=== PATIENT | male | born 1940 | race Caucasian/White ===

== ENCOUNTER 2023-02-20 12:35 | Inpatient (IN) ==
[2023-02-20] MEDS ORDERED: SODIUM CHLORIDE 0.9% 500 ML IV STA (13:31)
[2023-02-20] MEDS ORDERED: ONDANSETRON INJ 2 MG/ML 2 ML VIAL IV STA (13:31)
[2023-02-20 14:16] LABS: Basophils # (auto) 0.03 K/uL (0-0.2); Basophils % (auto) 0.2 %; Eosinophils # (auto) 0.03 K/uL (0-0.50); Eosinophils % (auto) 0.2 %; Hematocrit (blood only) 44.3 % (42.0-52.0); Immature Granulocytes # (auto) 0.11 K/uL (0.01-0.20); Immature Granulocytes % (auto) 0.6 %; Lymphocytes # (auto) 2.23 K/uL (1.2-3.4); Lymphocytes % (auto) 12.6 %; Mean Corpuscular Hemoglobin 29.4 pg (25.0-34.0); Mean Corpuscular Hgb Conc 33.9 g/dL (32.0-36.0); Mean Corpuscular Volume 86.9 fL (80.0-100.0); Mean Platelet Volume 10.8 fL (9.4-12.4); Monocytes # (auto) 0.89 K/uL (0.11-0.59); Neutrophils # (auto) 14.42 K/uL (1.40-6.50); Neutrophils % (auto) 81.4 %; Platelet Count 315 K/uL (130-400); RDW Coefficient of Variation 14.3 % (11.5-14.5); RDW Standard Deviation 45.1 fL (36.4-46.3); White Blood Count 17.71 K/ul (4.8-10.8)
[2023-02-20 14:21] LABS: Alanine Aminotransferase 227 U/L (7-52); Albumin Globulin Ratio 1.5 (0.9-2); Albumin Level 4.4 gm/dl (3.4-5.0); Alkaline Phosphatase 96 U/L (34-104); Anion Gap 7 (3-11); Aspartate Aminotransferase 85 U/L (13-39); BUN Creatinine Ratio 21.8 (10-20); Bilirubin,Total 0.5 mg/dl (0.2-1.0); Blood Urea Nitrogen 17 mg/dl (6-23); Calcium 9.4 mg/dl (8.6-10.3); Carbon Dioxide 31 mmol/L (21-32); Chloride 99 mmol/L (98-107); Est GFR (African American) 98.8 ml/min; Est GFR (Non-African American) 85.3 ml/min; Glucose 171 mg/dl (70-99(Fasting)); Potassium 4.3 mmol/L (3.5-5.1); Sodium 137 mmol/L (136-145); Total Protein 7.4 gm/dl (6.0-8.3)
[2023-02-20] MEDS ORDERED: SODIUM CHLORIDE 0.9% 1000ML 500 ML IV ONE (15:20)
--- NOTE | 2023-02-20 15:36 | Emergency Department Note ---
Impression & Plan Dizziness, Nausea, Hx of brain surgery, Leukocytosis, Elevated liver enzymes ED Provider Note NAME: AVANI LAGUNA AGE: 82 SEX: M : 1940 ARRIVES VIA: Walk-In INFORMANT: [Patient][family] ED PROVIDER(S): [Rashid Desai MD] CHIEF COMPLAINT: Vertigo HISTORY OF PRESENT ILLNESS: The patient is an 82-year-old male who has had around 6 months of what he thinks is vertigo spells. He did see Nicola Wichita Fifi 6 months ago, he saw his family doctor's office as well. He is now on meclizine. Patient states that the episodes typically last 1 to 2 hours. He has tried meclizine, sometimes it works. He states that he feels nausea, dizzy and develops dry heaves. He feels like his head is a bobble head. No arm or leg weakness. No chest pain or shortness of breath. There has been no fever. He does feel better with his eyes closed. The patient states that he is here today because this episode has been ongoing for 4-1/2 hours. The patient has a history of brain surgery secondary to intracranial bleeding. He denies cough or congestion or respiratory complaints, no urinary complaints. Of note, the patient did recently finish some oral steroids. He was on the steroids for his hip. PMHx/PSHx: See Below SOCIAL HISTORY: See Below. PHYSICAL EXAM: GENERAL: Patient is in no acute distress. HEENT: No acute trauma, normocephalic atraumatic, mucous membranes moist, no nasal congestion. The patient does have some subtle horizontal nystagmus, primarily noted when he looks up. NECK: No stridor, no adenopathy, no meningismus, trachea is midline. LUNGS: Clear to auscultation bilaterally, no wheeze, no rhonchi, breath sounds equal. HEART: Without murmurs gallops or rubs, regular rate and rhythm. ABDOMEN: Soft, nontender, bowel sounds positive, no peritonitis. EXTREMITIES: No cyanosis or edema, full range of motion of all the joints without pain or difficulty, no signs for acute trauma. NEUROLOGIC: Oriented x 3, no acute motor or sensory deficits, no focal weakness. No facial droop or speech slur, no extremity drift or cerebellar dysfunction. SKIN: No rash, no jaundice, no diaphoresis. DIFFERENTIAL DIAGNOSIS: Stroke, vertigo, intracranial bleeding, intracranial mass, UTI, electrolyte imbalance, anemia, dysrhythmia, among others. EMERGENCY DEPARTMENT COURSE/PROCEDURES: Prior/Outside records reviewed: Latest [facility] practice note. ECG per my interpretation: Indication was dizziness and weakness. The ECG shows a normal sinus rhythm with a rate of 78. There is a right bundle branch block. There are T wave inversions noted anteriorly. There is no ST elevation, no PVCs. QTc is 474. Continuous Cardiac Monitoring per my interpretation: An order was placed for continuous cardiac monitoring. The monitor shows a rate of 65 with normal sinus rhythm. MEDICAL DECISION MAKING: There is a moderate leukocytosis, this could be consistent with infection or his recent steroid use. There is a normal hemoglobin and platelet count. No renal failure. No concerning electrolyte abnormality. AST and ALT were both elevated, the bilirubin was normal. ECG shows a normal sinus rhythm, no ischemia. Cardiac enzyme testing x1 is not consistent with acute cardiac injury. Urinalysis does not show infection. Anaplasmosis and babesiosis smears were negative. Lyme disease testing was negative. COVID test was negative. Brain CT showed chronic change, no acute bleed or mass effect. Brain MRI is pending. On exam, the patient did not have any focal extremity findings. He did though have some horizontal nystagmus seen primarily when looking up. The patient was given IV Ativan 0.5 mg. He was given a liter of saline for hydration. He was given IV Zofran and oral meclizine. The patient's symptoms are persisting. He may feel slightly improved compared to when he first arrived. Given his brain surgery history, given his ongoing symptoms, I do think further work-up and neurologic evaluation is warranted. An MRI is warranted. I spoke with the patient and case management, the on-call hospitalist was consulted. DISPOSITION: Patient's presentation and findings warrant a hospital stay. Past Med/Surg History Medical History Vertigo Social History Smoking Status: Never smoker Preferred Language: [place] Feels Safe at Home: Yes Allergies Allergies Allergy/AdvReac Type Severity Reaction Status Date / Time niacin AdvReac Mild ITCHINESS, Verified 02/20/23 16:10 FAINTING Home Meds Home Medications Medication Instructions Recorded Confirmed amlodipine 10 mg tablet 10 mg PO QAM 02/20/23 02/20/23 cyclosporine 0.05 % eye drops in a 1 drp OPB BID 02/20/23 02/20/23 dropperette duloxetine 60 mg capsule,delayed 60 mg PO DAILY 02/20/23 02/20/23 release ezetimibe 10 mg tablet 10 mg PO QAM 02/20/23 02/20/23 folic acid 1 mg tablet 1 mg PO QAM 02/20/23 02/20/23 losartan 25 mg tablet 25 mg PO QAM 02/20/23 02/20/23 losartan 50 mg tablet 50 mg PO QAM 02/20/23 02/20/23 meclizine 12.5 mg tablet 12.5 mg PO TID PRN Dizziness 02/20/23 02/20/23 metformin 500 mg tablet,extended 1,000 mg PO BID 02/20/23 02/20/23 release 24 hr ondansetron HCl 8 mg tablet 8 mg PO Q8H PRN NAUSEA/VOMITING 02/20/23 02/20/23 rosuvastatin 40 mg tablet 40 mg PO DAILY 02/20/23 02/20/23 sennosides 8.6 mg-docusate sodium 2 tab PO HS 02/20/23 02/20/23 50 mg tablet (Stool Softener-Stimulant Laxative) Results & Data (ED) Vital Signs Vital Signs - 24 hr 02/20/23 12:59 02/20/23 14:45 02/20/23 16:58 Temperature 36.6 C Temperature Source Temporal Artery Scan Pulse Rate 76 Pulse Rate [Apical] 65 Respiratory Rate 18 18 Respiratory Effort / Characteristics Non-Labored Respiratory Depth Normal Blood Pressure 143/69 H Blood Pressure [Left Arm] 143/64 H 130/68 Blood Pressure Mean 93 Blood Pressure Mean [Left Arm] 90 88 Pulse Oximetry 96 93 Oxygen Delivery Method Room Air Sepsis Recent Fever Within 48 Hours No Sepsis New/Unexplained Change in Mental Status No Sepsis Action Taken by Nursing No Action Required 02/20/23 19:19 Temperature Temperature Source Pulse Rate Pulse Rate [Apical] Respiratory Rate Respiratory Effort / Characteristics Respiratory Depth Blood Pressure Blood Pressure [Left Arm] 151/72 H Blood Pressure Mean Blood Pressure Mean [Left Arm] 98 Pulse Oximetry Oxygen Delivery Method Sepsis Recent Fever Within 48 Hours Sepsis New/Unexplained Change in Mental Status Sepsis Action Taken by Prison Medications Current Medication List: was personally reviewed by me Laboratory Data Attestation: I reviewed the patient's lab results. 02/20/23 13:47 02/20/23 13:47 Lab Results 02/20/23 02/20/23 02/20/23 Range/Units 13:47 13:47 13:47 WBC 17.71 H (4.8-10.8) K/ul RBC 5.10 (4.70-6.10) M/uL Hgb 15.0 (14.0-18.0) g/dl Hct 44.3 (42.0-52.0) % MCV 86.9 (80.0-100.0) fL MCH 29.4 (25.0-34.0) pg MCHC 33.9 (32.0-36.0) g/dL RDW Std Deviation 45.1 (36.4-46.3) fL RDW Coeff of Goran 14.3 (11.5-14.5) % Plt Count 315 (130-400) K/uL MPV 10.8 (9.4-12.4) fL Immature Gran % (Auto) 0.6 % Neut % (Auto) 81.4 % Lymph % (Auto) 12.6 % Hinds % (Auto) 5.0 % Eos % (Auto) 0.2 % Baso % (Auto) 0.2 % Neut # (Auto) 14.42 H (1.40-6.50) K/uL Lymph # (Auto) 2.23 (1.2-3.4) K/uL Hinds # (Auto) 0.89 H (0.11-0.59) K/uL Eos # (Auto) 0.03 (0-0.50) K/uL Baso # (Auto) 0.03 (0-0.2) K/uL Immature Gran # (Auto) 0.11 (0.01-0.20) K/uL Sodium 137 (136-145) mmol/L Potassium 4.3 (3.5-5.1) mmol/L Chloride 99 (98-107) mmol/L Carbon Dioxide 31 (21-32) mmol/L Anion Gap 7 (3-11) BUN 17 (6-23) mg/dl Creatinine 0.78 (0.6-1.4) mg/dl Est Cr Clr Drug Dosing Not Reportable Est GFR ( Amer) 98.8 ml/min Est GFR (Non-Af Amer) 85.3 ml/min BUN/Creatinine Ratio 21.8 H (10-20) Glucose 171 H (70-99(Fasting)) mg/dl Calcium 9.4 (8.6-10.3) mg/dl Magnesium 2.0 (1.7-2.4) mg/dl Total Bilirubin 0.5 (0.2-1.0) mg/dl AST 85 H (13-39) U/L ALT 227 H (7-52) U/L Alkaline Phosphatase 96 (34-104) U/L Troponin I High Sens 18.5 (0-20) pg/ml Total Protein 7.4 (6.0-8.3) gm/dl Albumin 4.4 (3.4-5.0) gm/dl Globulin 3.0 (2.5-4.0) gm/dl Albumin/Globulin Ratio 1.5 (0.9-2) Urine Color Urine Appearance (Clear) Urine pH (4.5-7.5) Ur Specific [place] (1.000-1.030) Urine Protein (Negative) Urine Glucose (UA) (Negative) Urine Ketones (Negative) Urine Blood (Negative) Urine Nitrite (Negative) Urine Bilirubin (Negative) Urine Urobilinogen (Negative) Ur Leukocyte Esterase (Negative) Anaplasma Smear See Comment Babesia Smear See Comment Lyme Disease IgG Ab (Negative) Lyme Disease IgM Ab (Negative) SARS-CoV-2, RNA, NAAT (NEGATIVE) 02/20/23 02/20/23 02/20/23 Range/Units 16:52 18:40 20:07 WBC (4.8-10.8) K/ul RBC (4.70-6.10) M/uL Hgb (14.0-18.0) g/dl Hct (42.0-52.0) % MCV (80.0-100.0) fL MCH (25.0-34.0) pg MCHC (32.0-36.0) g/dL RDW Std Deviation (36.4-46.3) fL RDW Coeff of Goran (11.5-14.5) % Plt Count (130-400) K/uL MPV (9.4-12.4) fL Immature Gran % (Auto) % Neut % (Auto) % Lymph % (Auto) % Hinds % (Auto) % Eos % (Auto) % Baso % (Auto) % Neut # (Auto) (1.40-6.50) K/uL Lymph # (Auto) (1.2-3.4) K/uL Hinds # (Auto) (0.11-0.59) K/uL Eos # (Auto) (0-0.50) K/uL Baso # (Auto) (0-0.2) K/uL Immature Gran # (Auto) (0.01-0.20) K/uL Sodium (136-145) mmol/L Potassium (3.5-5.1) mmol/L Chloride (98-107) mmol/L Carbon Dioxide (21-32) mmol/L Anion Gap (3-11) BUN (6-23) mg/dl Creatinine (0.6-1.4) mg/dl Est Cr Clr Drug Dosing Est GFR ( Amer) ml/min Est GFR (Non-Af Amer) ml/min BUN/Creatinine Ratio (10-20) Glucose (70-99(Fasting)) mg/dl Calcium (8.6-10.3) mg/dl Magnesium (1.7-2.4) mg/dl Total Bilirubin (0.2-1.0) mg/dl AST (13-39) U/L ALT (7-52) U/L Alkaline Phosphatase (34-104) U/L Troponin I High Sens (0-20) pg/ml Total Protein (6.0-8.3) gm/dl Albumin (3.4-5.0) gm/dl Globulin (2.5-4.0) gm/dl Albumin/Globulin Ratio (0.9-2) Urine Color Yellow Urine Appearance Clear (Clear) Urine pH 7.5 (4.5-7.5) Ur Specific [place] 1.007 (1.000-1.030) Urine Protein Negative (Negative) Urine Glucose (UA) Negative (Negative) Urine Ketones Negative (Negative) Urine Blood Negative (Negative) Urine Nitrite Negative (Negative) Urine Bilirubin Negative (Negative) Urine Urobilinogen Negative (Negative) Ur Leukocyte Esterase Negative (Negative) Anaplasma Smear Babesia Smear Lyme Disease IgG Ab Negative (Negative) Lyme Disease IgM Ab Negative (Negative) SARS-CoV-2, RNA, NAAT NEGATIVE (NEGATIVE) Administered Medications Discontinued Medications Gadobutrol (Gadobutrol 65ml Vial) 9 ml IV ONCE ONE Stop: 02/20/23 21:15 Last Admin: 02/20/23 21:15 Dose: 9 ml Documented By: MICHAEL Sodium Chloride (Nss) 500 mls @ 999 mls/hr IV .Q31M STA Stop: 02/20/23 14:01 Last Infusion: 02/20/23 14:46 Dose: 0 mls/hr Documented By: Admin: 02/20/23 13:53 Dose: 999 mls/hr Documented By: DEMOND Sodium Chloride (Nss 1000ml) 500 mls @ 999 mls/hr IV .Q31M ONE Stop: 02/20/23 15:50 Last Infusion: 02/20/23 16:22 Dose: 0 mls/hr Documented By: Admin: 02/20/23 15:36 Dose: 999 mls/hr Documented By: SOPHIA Lorazepam (Lorazepam 2 Mg/1 Ml Vial) 0.5 mg IV NOW STA Stop: 02/20/23 15:21 Last Admin: 02/20/23 16:11 Dose: 0.5 mg Documented By: SOPHIA Meclizine HCl (Meclizine Hcl 25 Mg Tab) 25 mg PO NOW STA Stop: 02/20/23 17:21 Last Admin: 02/20/23 17:28 Dose: 25 mg Documented By: SOPHIA Ondansetron HCl (Ondansetron Inj 2 Mg/Ml 2 Ml Vial) 4 mg IV NOW STA Stop: 02/20/23 13:32 Last Admin: 02/20/23 13:53 Dose: 4 mg Documented By: DEMOND Imaging Data Radiologist's Impression: Head CT 02/20/23 15:20 CT SCAN OF THE BRAIN WITHOUT IV CONTRAST CLINICAL HISTORY: Generalized weakness. Vertigo. COMPARISON STUDY: No priors. TECHNIQUE: Unenhanced axial CT scan of the brain is performed from the vertex to the skull base. A dose lowering technique was utilized adhering to the principles of ALARA. CT DOSE: 625.80 mGy.cm FINDINGS: Brain parenchyma: A focus of left occipital encephalomalacia is consistent with a remote insult. There is age-related involutional change noting mild subcortical and periventricular microangiopathic disease. There is no hemorrhage , mass effect, or evidence of acute territorial ischemia by CT criteria. Harrison- white matter differentiation is preserved. No extra-axial fluid collection is seen. Mineralization is noted in the basal ganglia. Ventricles, sulci, cisterns: Prominent secondary to involutional change. Intracranial vasculature: There is atherosclerotic calcification of the cavernous carotid arteries. Calvarium: There is postsurgical change from left occipital craniectomy. No destructive calvarial lesion is seen. Sinuses and mastoids: The visualized paranasal sinuses are clear. The mastoid air cells are well pneumatized. Orbits: The bony orbits are grossly intact. IMPRESSION: 1. There is no hemorrhage, mass effect, or evidence of acute territorial ischemia by CT criteria. 2. Chronic and postsurgical changes as above. ACT 112: Negative or not required by law. Electronically signed by: Rashid Shirley M.D. 02/20/2023 4:19 PM Discharge Plan Visit Data Chief Complaint: Vertigo Stated Complaint: VOMITING, WEAK, DIZZY ED Provider: Rashid Desai Discharge Problem: Dizziness, Nausea, Hx of brain surgery, Leukocytosis, Elevated liver enzymes Patient Disposition: Admitted As Inpatient Condition: Fair Forms Stand Alone Forms: My [facility] Prescriptions Prescriptions: No Action losartan 50 mg tablet 50 mg PO QAM Rx Instructions: TOTAL DOSE 75 MG--TAKES WITH 25 MG TAB. ondansetron HCl 8 mg tablet 8 mg PO Q8H PRN (Reason: NAUSEA/VOMITING) sennosides-docusate sodium [Stool Softener-Stimulant Laxat] 8.6-50 mg tablet 2 tab PO HS meclizine 12.5 mg tablet 12.5 mg PO TID PRN (Reason: Dizziness) amlodipine 10 mg tablet 10 mg PO QAM losartan 25 mg tablet 25 mg PO QAM Rx Instructions: TOTAL DOSE 75 MG--TAKES WITH 50 MG TAB. folic acid 1 mg tablet 1 mg PO QAM metformin 500 mg tablet extended release 24 hr 1,000 mg PO BID ezetimibe 10 mg tablet 10 mg PO QAM cyclosporine 0.05 % dropperette 1 drp OPB BID rosuvastatin 40 mg tablet 40 mg PO DAILY duloxetine 60 mg capsule,delayed release(DR/EC) 60 mg PO DAILY Referrals Referrals: Florian Sinha MD [Primary Care Provider] -
[2023-02-20 15:46] LABS: Troponin I High Sensitivity 18.5 pg/ml (0-20)
[2023-02-20] MEDS: LORazepam 2 MG/1 ML VIAL IV STA (16:11)
--- NOTE | 2023-02-20 16:21 | CT Scan Report ---
CT SCAN OF THE BRAIN WITHOUT IV CONTRAST CLINICAL HISTORY: Generalized weakness. Vertigo. COMPARISON STUDY: No priors. TECHNIQUE: Unenhanced axial CT scan of the brain is performed from the vertex to the skull base. A do se lowering technique was utilized adhering to the principles of ALARA. CT DOSE: 625.80 mGy.cm FINDINGS: Brain parenchyma: A focus of left occipital encephalomalacia is consistent with a remote insult. Ther e is age-related involutional change noting mild subcortical and periventricular microangiopathic dis ease. There is no hemorrhage, mass effect, or evidence of acute territorial ischemia by CT criteria. Harrison-white matter differentiation is preserved. No extra-axial fluid collection is seen. Mineralizati on is noted in the basal ganglia. Ventricles, sulci, cisterns: Prominent secondary to involutional change. Intracranial vasculature: There is atherosclerotic calcification of the cavernous carotid arteries. Calvarium: There is postsurgical change from left occipital craniectomy. No destructive calvarial les ion is seen. Sinuses and mastoids: The visualized paranasal sinuses are clear. The mastoid air cells are well pneu matized. Orbits: The bony orbits are grossly intact. IMPRESSION: 1. There is no hemorrhage, mass effect, or evidence of acute territorial ischemia by CT criteria. 2. Chronic and postsurgical changes as above. ACT 112: Negative or not required by law. Electronically signed by: Rashid Shirley M.D. 02/20/2023 4:19 PM
[2023-02-20] MEDS ORDERED: MECLIZINE HCL 25 MG TAB PO STA (17:20)
[2023-02-20 18:20] LABS: Lyme Ab IgG w/WB Rflx Negative (Negative); Lyme Ab IgM w/WB Rflx Negative (Negative)
[2023-02-20 19:16] LABS: Appearance Urine Clear (Clear); Bilirubin Urine Negative (Negative); Blood Urine Negative (Negative); Color Urine Yellow; Glucose Urine UA Negative (Negative); Ketones Urine Negative (Negative); Leukocyte Esterase Urine Negative (Negative); Nitrite Urine Negative (Negative); Protein Urine Negative (Negative); Specific Gravity Urine 1.007 (1.000-1.030); Urobilinogen Urine Negative (Negative); pH Urine 7.5 (4.5-7.5)
--- NOTE | 2023-02-20 20:19 | History & Physical Report ---
Date of Service February 20, 2023 Assessment & Plan (1) Dizziness: Plan: 82-year-old male with history of hypertension, hyperlipidemia, diabetes as well as prior brain surgery presenting with 6 months of episodic dizziness with severe episode prior to arrival. Patient also experiences generalized weakness, gait disturbance as well as mild confusion with these episodes. Labs are significant for leukocytosis with WBC = 17.71 (patient was recently on steroids) CT of the head as well as MRI of the brain are significant for postoperative changes as well as nonspecific changes. Uncertain etiology. Consider BPPV, TIA, medication side effects (Duloxetine?) possible seizure activity? reports that patient becomes confused and sleeps for several hours following these episodes. Neurological exam is largely unremarkable Observation to medical with telemetry Check orthostatic vital signs x1 Tick borne work-up sent from the ERwe will follow Meclizine as needed Consider neurology consult PT/OT evaluation Maintain fall precautions (2) Hyperlipidemia: Plan: Chronic. Continue Crestor 40 mg p.o. daily (3) Diabetes: Plan: Chronic. Patient is on metformin 1000 mg p.o. twice daily. Blood sugar presently 171. Hold metformin Lantus 5 units twice daily with insulin sliding scale, goal blood sugar [id number] Check hemoglobin A1c with a.m. labs (4) Hypertension: Plan: Blood pressure mildly elevated on arrival. Now at goal at 125/66 Continue losartan 75 mg p.o. daily Continue amlodipine 10 mg p.o. daily Continue to monitor F/E/NHep-Lock, electrolytes within normal limits, heart healthy diet as tolerated ProphylaxisLovenox Codefull per discussion with patient Dispositionobservation to medical with telemetry History of Present Illness Chief Complaint: dizziness Primary Care Provider: Florian Sinha MD Almaz Kerns is an 82yo male with history of DM, HTN, HLP and fatty liver disease presenting with acute on chronic vertigo. Patient reports he has been experiencing intermittent episodes of vertigo for the last 6 months. He is unable to identify any instigating factors. Episodes occur intermittently sometimes every 1-2 days and sometimes every couple of weeks. The sensation lasts 1-2 hours. Patient "feels like his head is a bobble head" and has as sociated weakness of his legs bilaterally with difficulty standing and gait instability. His at bedside also reports that he appears slightly confused during the episodes and his speech may be slightly slurred. Patient reportedly becomes very tired following these episodes and falls asleep for an extended period of time - sometimes over 12 hours. Patient has been treated by his PCP for this issue with meclizine. He states that he does get some relief with taking meclizine. Patient had an episode of dizziness today that was more severe than prior episodes that started around 10:30 AM while he was sitting in his chair at home. He had nausea and dry heaving. No headache or focal weakness. No additional complaints at this time. Patient otherwise denies fever, chills, chest pain, palpitations, cough, shortness of breath. Denies abdominal pain, diarrhea. 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 He was last seen in followup for this issue 2 years ago and is reported to be stable. In the ER patient is afebrile, hemodynamically stable, no acute distress ER course: Meclizine 25 mg p.o. Ativan 0.5 mg IV Normal saline 500 mL x 2 Zofran 4 mg IV Allergies Allergy/AdvReac Type Severity Reaction Status Date / Time niacin AdvReac Mild ITCHINESS, Verified 02/20/23 16:10 FAINTING Home Medications Medication Instructions Recorded Confirmed Type amlodipine 10 mg tablet 10 mg PO QAM 02/20/23 02/20/23 History cyclosporine 0.05 % eye drops in a 1 drp OPB BID 02/20/23 02/20/23 History dropperette duloxetine 60 mg capsule,delayed 60 mg PO DAILY 02/20/23 02/20/23 History release ezetimibe 10 mg tablet 10 mg PO QAM 02/20/23 02/20/23 History folic acid 1 mg tablet 1 mg PO QAM 02/20/23 02/20/23 History losartan 25 mg tablet 25 mg PO QAM 02/20/23 02/20/23 History losartan 50 mg tablet 50 mg PO QAM 02/20/23 02/20/23 History meclizine 12.5 mg tablet 12.5 mg PO TID PRN Dizziness 02/20/23 02/20/23 History metformin 500 mg tablet,extended 1,000 mg PO BID 02/20/23 02/20/23 History release 24 hr ondansetron HCl 8 mg tablet 8 mg PO Q8H PRN NAUSEA/VOMITING 02/20/23 02/20/23 History rosuvastatin 40 mg tablet 40 mg PO DAILY 02/20/23 02/20/23 History sennosides 8.6 mg-docusate sodium 2 tab PO HS 02/20/23 02/20/23 History 50 mg tablet (Stool Softener-Stimulant Laxative) Past Med/Surg History Medical History (Updated 02/20/23 @ 23:08 by Charisse Sanders DO) Diabetes Fatty liver Hyperlipidemia Hypertension Vertigo Surgical History (Updated 02/20/23 @ 23:08 by Charisse Sanders DO) History of back surgery History of shoulder surgery Family History (Updated 02/20/23 @ 23:08 by Charisse Sanders DO) Other Family history non-contributory Social History (Updated 02/20/23 @ 23:08 by Charisse Sanders DO) Smoking Status: Never smoker Tobacco Type: Smokeless Tobacco (Dip or Chew) Preferred Language: Kazakh Feels Safe at Home: Yes Review of Systems Review of Systems: All systems reviewed & are unremarkable except as noted in HPI & below Physical Exam Physical Exam: General: patient resting comfortably, NAD, non-toxic in appearance, AA&O x 4 Skin: warm, dry, intact, no rashes or lesions HEENT: NC/AT, PERRL, EOMI, anicteric sclera, conjunctiva without injection, external ear normal to inspection and nontender, nares patent, moist mucus membranes, dentition intact, no oropharyngeal lesions, neck supple, trachea midline, no LAD, no thyromegaly, no JVD Heart: +S1/S2, regular, no m/r/g Lungs: equal air entry bilaterally, no rales/rhonchi/wheezes Abd: +BS, soft, NT/ND, no masses/organomegaly/ascites Ext: warm, 2+ pulses in UE/LE bilaterally, no clubbing/cyanosis or edema Neuro: nonfocal, patient AA&O x 4, speech intact, no facial droop, moving all extremities on command with equal strength 5/5, no nystagmus Results & Data Results & Data Vital Signs (Past 12 Hours) Vital Signs Temp Pulse Pulse Resp BP BP Pulse Ox 02/20/23 19:19 151/72 H 02/20/23 16:58 130/68 02/20/23 14:45 65 18 143/64 H 93 02/20/23 12:59 36.6 C 76 18 143/69 H 96 O2 Del Method 02/20/23 19:19 02/20/23 16:58 02/20/23 14:45 02/20/23 12:59 Room Air Laboratory Results Laboratory Results WBC 17.71 K/ul (4.8-10.8) H 02/20/23 13:47 RBC 5.10 M/uL (4.70-6.10) 02/20/23 13:47 Hgb 15.0 g/dl (14.0-18.0) 02/20/23 13:47 Hct 44.3 % (42.0-52.0) 02/20/23 13:47 MCV 86.9 fL (80.0-100.0) 02/20/23 13:47 MCH 29.4 pg (25.0-34.0) 02/20/23 13:47 MCHC 33.9 g/dL (32.0-36.0) 02/20/23 13:47 RDW Std Deviation 45.1 fL (36.4-46.3) 02/20/23 13:47 RDW Coeff of Goran 14.3 % (11.5-14.5) 02/20/23 13:47 Plt Count 315 K/uL (130-400) 02/20/23 13:47 MPV 10.8 fL (9.4-12.4) 02/20/23 13:47 Immature Gran % (Auto) 0.6 % 02/20/23 13:47 Neut % (Auto) 81.4 % 02/20/23 13:47 Lymph % (Auto) 12.6 % 02/20/23 13:47 [place] % (Auto) 5.0 % 02/20/23 13:47 Eos % (Auto) 0.2 % 02/20/23 13:47 Baso % (Auto) 0.2 % 02/20/23 13:47 Neut # (Auto) 14.42 K/uL (1.40-6.50) H 02/20/23 13:47 Lymph # (Auto) 2.23 K/uL (1.2-3.4) 02/20/23 13:47 [place] # (Auto) 0.89 K/uL (0.11-0.59) H 02/20/23 13:47 Eos # (Auto) 0.03 K/uL (0-0.50) 02/20/23 13:47 Baso # (Auto) 0.03 K/uL (0-0.2) 02/20/23 13:47 Immature Gran # (Auto) 0.11 K/uL (0.01-0.20) 02/20/23 13:47 Sodium 137 mmol/L (136-145) 02/20/23 13:47 Potassium 4.3 mmol/L (3.5-5.1) 02/20/23 13:47 Chloride 99 mmol/L (98-107) 02/20/23 13:47 Carbon Dioxide 31 mmol/L (21-32) 02/20/23 13:47 Anion Gap 7 (3-11) 02/20/23 13:47 BUN 17 mg/dl (6-23) 02/20/23 13:47 Creatinine 0.78 mg/dl (0.6-1.4) 02/20/23 13:47 Est Cr Clr Drug Dosing Not Reportable 02/20/23 13:47 Est GFR ( Amer) 98.8 ml/min 02/20/23 13:47 Est GFR (Non-Af Amer) 85.3 ml/min 02/20/23 13:47 BUN/Creatinine Ratio 21.8 (10-20) H 02/20/23 13:47 Glucose 171 mg/dl (70-99(Fasting)) H 02/20/23 13:47 POC Glucose 149 mg/dl (70-99) H 02/20/23 23:00 Calcium 9.4 mg/dl (8.6-10.3) 02/20/23 13:47 Magnesium 2.0 mg/dl (1.7-2.4) 02/20/23 13:47 Total Bilirubin 0.5 mg/dl (0.2-1.0) 02/20/23 13:47 AST 85 U/L (13-39) H 02/20/23 13:47 ALT 227 U/L (7-52) H 02/20/23 13:47 Alkaline Phosphatase 96 U/L (34-104) 02/20/23 13:47 Troponin I High Sens 18.5 pg/ml (0-20) 02/20/23 13:47 Total Protein 7.4 gm/dl (6.0-8.3) 02/20/23 13:47 Albumin 4.4 gm/dl (3.4-5.0) 02/20/23 13:47 Globulin 3.0 gm/dl (2.5-4.0) 02/20/23 13:47 Albumin/Globulin Ratio 1.5 (0.9-2) 02/20/23 13:47 Urine Color Yellow 02/20/23 18:40 Urine Appearance Clear (Clear) 02/20/23 18:40 Urine pH 7.5 (4.5-7.5) 02/20/23 18:40 Ur Specific [place] 1.007 (1.000-1.030) 02/20/23 18:40 Urine Protein Negative (Negative) 02/20/23 18:40 Urine Glucose (UA) Negative (Negative) 02/20/23 18:40 Urine Ketones Negative (Negative) 02/20/23 18:40 Urine Blood Negative (Negative) 02/20/23 18:40 Urine Nitrite Negative (Negative) 02/20/23 18:40 Urine Bilirubin Negative (Negative) 02/20/23 18:40 Urine Urobilinogen Negative (Negative) 02/20/23 18:40 Ur Leukocyte Esterase Negative (Negative) 02/20/23 18:40 Anaplasma Smear See Comment 02/20/23 13:47 Babesia Smear See Comment 02/20/23 13:47 Lyme Disease IgG Ab Negative (Negative) 02/20/23 16:52 Lyme Disease IgM Ab Negative (Negative) 02/20/23 16:52 SARS-CoV-2, RNA, NAAT NEGATIVE (NEGATIVE) 02/20/23 20:07 Impressions Brain MRI 02/20/23 15:20 MRI OF THE BRAIN COMBO CLINICAL HISTORY: Vertigo. Nystagmus. COMPARISON STUDY: CT of the brain dated 02/20/2023. TECHNIQUE: MRI of the brain was performed utilizing various T1 and T2-weighted sequences in the axial, sagittal, and coronal planes. Contrast-enhanced sequences were acquired following the administration of 9 cc of Gadavist. FINDINGS: Brain parenchyma: There is age-related involutional change noting mild subcortical and periventricular microangiopathic disease. Left occipital encephalomalacia is consistent with a remote insult. There is no hemorrhage or mass effect. There is no restricted diffusion typical for acute ischemia. No enhancing mass lesion is identified on the postcontrast images. Harrison-white matter differentiation is preserved. No extra-axial fluid collection is seen. Mineralization is noted in the basal ganglia. There is mild nonspecific pachymeningeal thickening and enhancement. The cerebellar tonsils are normal in configuration. Ventricles, sulci, and cisterns: Prominent secondary to involutional change. Pituitary and sella: Unremarkable. Intracranial vasculature: Normal flow voids are maintained at the skull base. Orbits: The bony orbits are grossly intact. Orbital contents are normal in appearance noting bilateral ocular lens implants. Sinuses and mastoids: A 1.4 cm retention cyst is noted in the right maxillary antrum. The paranasal sinuses and mastoid air cells are otherwise clear. Calvarium: There is post surgical change from left occipital craniectomy. No destructive calvarial lesion is seen. Cervical cord: Partially visualized cervical spinal cord is normal in morphology and signal intensity. IMPRESSION: 1. No acute intracranial abnormality. 2. Chronic and postsurgical changes as above. 3. There is mild nonspecific pachymeningeal thickening and enhancement. Clinical correlation will be required. ACT 112: Negative or not required by law. Electronically signed by: Rashid Shirley M.D. 02/20/2023 9:[address] 02/20/23 15:20 CT SCAN OF THE BRAIN WITHOUT IV CONTRAST CLINICAL HISTORY: Generalized weakness. Vertigo. COMPARISON STUDY: No priors. TECHNIQUE: Unenhanced axial CT scan of the brain is performed from the vertex to the skull base. A dose lowering technique was utilized adhering to the principles of ALARA. CT DOSE: 625.80 mGy.cm FINDINGS: Brain parenchyma: A focus of left occipital encephalomalacia is consistent with a remote insult. There is age-related involutional change noting mild subcortical and periventricular microangiopathic disease. There is no hemorrhage, mass effect, or evidence of acute territorial ischemia by CT criteria. Harrison-white matter differentiation is preserved. No extra-axial fluid collection is seen. Mineralization is noted in the basal ganglia. Ventricles, sulci, cisterns: Prominent secondary to involutional change. Intracranial vasculature: There is atherosclerotic calcification of the cavernous carotid arteries. Calvarium: There is postsurgical change from left occipital craniectomy. No destructive calvarial lesion is seen. Sinuses and mastoids: The visualized paranasal sinuses are clear. The mastoid air cells are well pneumatized. Orbits: The bony orbits are grossly intact. IMPRESSION: 1. There is no hemorrhage, mass effect, or evidence of acute territorial isc hemia by CT criteria. 2. Chronic and postsurgical changes as above. ACT 112: Negative or not required by law. Electronically signed by: Rashid Shirley M.D. 02/20/2023 4:19 PM ECG Additional Comments: EKG per my interpretation reveals normal sinus rhythm at 78 bpm, normal axis, [place] = 160, QRS = 142, QTc = 474. Right bundle branch block, T wave abnormalities, no prior study available PG Care Time/CCT Total # of Minutes Spent Total Time Spent with Patient: Total time spent is greater than 50% in coordination of care (as documented) at patient's floor/unit and/or counseling patient: Coding Level of Care Code 20676 INT INP/OBS CARE 2/55MIN Diagnoses Dizziness R42 Hyperlipidemia E78.5 Diabetes E11.9 Hypertension I10
[2023-02-20] MEDS ORDERED: GADOBUTROL 65ML VIAL IV ONE (21:14)
--- NOTE | 2023-02-20 21:51 | Magnetic Resonance Report ---
MRI OF THE BRAIN COMBO CLINICAL HISTORY: Vertigo. Nystagmus. COMPARISON STUDY: CT of the brain dated 02/20/2023. TECHNIQUE: MRI of the brain was performed utilizing various T1 and T2-weighted sequences in the axial , sagittal, and coronal planes. Contrast-enhanced sequences were acquired following the administratio n of 9 cc of Gadavist. FINDINGS: Brain parenchyma: There is age-related involutional change noting mild subcortical and periventricula r microangiopathic disease. Left occipital encephalomalacia is consistent with a remote insult. There is no hemorrhage or mass effect. There is no restricted diffusion typical for acute ischemia. No enh ancing mass lesion is identified on the postcontrast images. Harrison-white matter differentiation is pre served. No extra-axial fluid collection is seen. Mineralization is noted in the basal ganglia. There is mild nonspecific pachymeningeal thickening and enhancement. The cerebellar tonsils are normal in c onfiguration. Ventricles, sulci, and cisterns: Prominent secondary to involutional change. Pituitary and sella: Unremarkable. Intracranial vasculature: Normal flow voids are maintained at the skull base. Orbits: The bony orbits are grossly intact. Orbital contents are normal in appearance noting bilatera l ocular lens implants. Sinuses and mastoids: A 1.4 cm retention cyst is noted in the right maxillary antrum. The paranasal s inuses and mastoid air cells are otherwise clear. Calvarium: There is post surgical change from left occipital craniectomy. No destructive calvarial le ronnell is seen. Cervical cord: Partially visualized cervical spinal cord is normal in morphology and signal intensity . IMPRESSION: 1. No acute intracranial abnormality. 2. Chronic and postsurgical changes as above. 3. There is mild nonspecific pachymeningeal thickening and enhancement. Clinical correlation will be required. ACT 112: Negative or not required by law. Electronically signed by: Rashid Shirley M.D. 02/20/2023 9:49 PM
[2023-02-20] MEDS ORDERED: DEXTROSE 50% 50 ML SYRINGE IV PRN (22:55)
[2023-02-20] MEDS ORDERED: MECLIZINE 12.5 MG TAB PO PRN (22:55)
[2023-02-20] MEDS ORDERED: GLUCOSE 40% GEL 15 GM TUBE PO PRN (22:55)
[2023-02-20] MEDS ORDERED: ONDANSETRON INJ 2 MG/ML 2 ML VIAL IV PRN (22:55)
[2023-02-20] MEDS ORDERED: CARBOHYDRATES FOR HYPOGLYCEMIA PO PRN (22:55)
[2023-02-20] MEDS ORDERED: GLUCAGON FOR INJ 1 MG VIAL SQ PRN (22:55)
[2023-02-20] MEDS ORDERED: GLUCOSE 10 TAB/TUBE PO PRN (22:55)
[2023-02-20] MEDS ORDERED: ACETAMINOPHEN 325 MG TAB PO PRN (22:55)
[2023-02-20] MEDS: DOCUSATE SODIUM/SENNA 50/8.6MG TAB PO SCH (23:13)
[2023-02-20] MEDS: LANTUS PER UNIT CHARGE SQ SCH (23:13)
[2023-02-20] MEDS: INSULIN ASPART PER UNIT CHARGE SC SCH (23:13)
[2023-02-20] MEDS ORDERED: ARTIFICIAL TEARS OP PRN (23:15)
[2023-02-21 06:39] LABS: Hematocrit (blood only) 40.2 % (42.0-52.0); Hemoglobin 13.9 g/dl (14.0-18.0); Mean Corpuscular Hemoglobin 30.3 pg (25.0-34.0); Mean Corpuscular Hgb Conc 34.6 g/dL (32.0-36.0); Mean Corpuscular Volume 87.8 fL (80.0-100.0); Mean Platelet Volume 11.2 fL (9.4-12.4); Platelet Count 279 K/uL (130-400); RDW Coefficient of Variation 14.3 % (11.5-14.5); RDW Standard Deviation 45.4 fL (36.4-46.3); Red Blood Count 4.58 M/uL (4.70-6.10); White Blood Count 12.32 K/ul (4.8-10.8)
[2023-02-21 06:54] LABS: Albumin Level 3.6 gm/dl (3.4-5.0); BUN Creatinine Ratio 18.6 (10-20); Bilirubin Direct 0.1 mg/dl (0-0.2); Bilirubin,Total 0.3 mg/dl (0.2-1.0); Calcium 9.2 mg/dl (8.6-10.3); Creatinine Clr Calc Pharmacy 79.2 ml/min; Est GFR (African American) 103.3 ml/min; Est GFR (Non-African American) 89.1 ml/min; Total Protein 6.2 gm/dl (6.0-8.3)
[2023-02-21 08:08] LABS: Estimated Average Glucose 157 mg/dl; Hemoglobin A1C 7.1 % (4.5-5.6)
[2023-02-21] MEDS: LANTUS PER UNIT CHARGE SQ SCH ×2 (08:49→20:46)
[2023-02-21] MEDS: INSULIN ASPART PER UNIT CHARGE SC SCH ×4 (08:49→20:45)
[2023-02-21] MEDS: amLODIPine BESYLATE 5 MG TAB PO SCH (08:52)
[2023-02-21] MEDS: ENOXAPARIN INJ 40 MG/0.4 ML SYR SQ SCH (08:52)
[2023-02-21] MEDS: EZETIMIBE 10 MG TABLET PO SCH (08:52)
[2023-02-21] MEDS: DULoxetine HCL 60 MG CAP PO SCH (08:52)
[2023-02-21] MEDS: LOSARTAN POTASSIUM 50 MG TAB PO SCH (08:52)
[2023-02-21] MEDS: ROSUVASTATIN CALCIUM 20 MG TAB PO SCH (08:53)
[2023-02-21] MEDS: LOSARTAN POTASSIUM 25 MG TAB PO SCH (08:53)
--- NOTE | 2023-02-21 11:15 | Hospitalist Progress Note ---
Date of Service February 21, 2023 Assessment & Plan (1) Episodic recurrent vertigo: Plan: 6+ months of attacks of severe vertigo with N/V Attack just prior to admission - patient was sitting in chair watching TV Has associated photophobia, phonophobia with attacks Following his events he goes to sleep sometimes for many hours Since admission his vertigo has been resolved and he is able to ambulate without vertigo Does have h/o migraines as a young adult - they were unilateral in location, had associated nausea, etc But no headaches in many years [place] [facility] [place] Differential - basilar migraines vs VBI vs partial aware seizures vs other CTA head/neck obtained - NO vascular disease present (no aneurysm, stenosis, etc) MRI brain negative for acute CVA MRI brain showed old left occipital encephalomalacia + mild, nonspecific pachymeningeal thickening/enhancement Dr Mooney feels the meningeal enhancement is likely old, post-surgical change I agree he has no features/signs/symptoms of infectious meningitis Dr Mooney advising med trial to cover for partial aware seizures with keppra 500mg BID Will start this tonight Will also try to interrogate loop recorder to r/o arrhythmia events but very unlikely EEG ordered as well Will need close outpatient f/u post-discharge PT, OT evals (2) Hyperlipidemia: Plan: Continue Crestor 40 mg p.o. daily Continue zetia (3) Diabetes: Plan: Patient is on metformin 1000 mg p.o. twice daily -- hold while here. Start Lantus 5 units twice daily with novolog sliding scale Check a1c while here (4) Hypertension: Plan: controlled Continue losartan 75 mg p.o. daily Continue amlodipine 10 mg p.o. daily (5) Elevated liver enzymes: Plan: limited outpatient records suggest fatty liver at minimum records also report he has had a liver biopsy - details uncertain 1 [facility] med outpatient note mentions he has DUBOIS? (6) H/O lumbosacral spine surgery: Plan: 07/13/2015 - L4-L5 surgery (per limited outpatient records); details uncertain repeat surgery - spring 2022 at [facility] (per daughter) details uncertain per daughter lumbar fusion was done? limited outpatient records reference epidural steroid injections for spine in 2021 that were not helpful patient reports b/l leg numbness - mainly in his thighs - along with b/l leg weakness L>R PT, OT evals Check B12, B1 levels in am due to neuropathy and leg weakness (7) History of cervical spinal surgery: Plan: per limited outpatient [facility] med records - cervical diskectomy - 08/2011 details uncertain otherwise conceivably c-spine disease could be contributing to leg weakness (8) RAFAEL (obstructive sleep apnea): Plan: on CPAP (9) Psoriatic arthritis: Plan: apparently was on methotrexate in past and Humira - no longer on Rx does not follow with rheum any longer uncertain if he has had psoriatic arthritis vs RA (10) Implantable loop recorder present: Plan: details uncertain about implantation date, etc we can try to perform a download while here if it is a Raiing device (11) History of craniotomy: Plan: 11/2020 - [facility] 2nd to cerebral dural AV fistula had repeat surgery in 12/2020 occipital in location based on current imaging here at [facility] (12) Bilateral leg weakness: Plan: present for months per family multiple possibilities for this - c-spine disease, l-spine disease (although recent l-spine surgery did not correct the weakness), nutritional deficiency, etc has neuropathy of legs - outpatient EMG study ? 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 again details unknown patient is poor historian Plan DVT proph - lovenox daily family updated at bedside change observation status to full admission status due to concern for seizures Admission and Anticipated Discharge Date Admission Date: February 20, 2023 Results & Data Results & Data Vital Signs (Past 12 Hours) Vital Signs Temp Pulse Resp BP Pulse Ox O2 Del Method 02/21/23 07:52 36.7 C 86 20 133/68 92 Room Air 02/21/23 04:00 37.1 C 87 138/66 94 Room Air 02/20/23 23:57 36.4 C L 84 16 155/74 H Room Air PG Care Time/CCT Total # of Minutes Spent Total Time Spent with Patient: Total time spent is greater than 50% in coordination of care (as documented) at patient's floor/unit and/or counseling patient: Coding Level of Care Code 13975 SUB INP/OBS CARE 3/50MIN Diagnoses Episodic recurrent vertigo H81.90 Hyperlipidemia E78.5 Diabetes E11.9 Hypertension I10 Elevated liver enzymes R74.8 H/O lumbosacral spine surgery Z98.890 History of cervical spinal surgery Z98.890 RAFAEL (obstructive sleep apnea) G47.33 Psoriatic arthritis L40.50 Implantable loop recorder present Z95.818 History of craniotomy Z98.890 Bilateral leg weakness R29.898 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
--- NOTE | 2023-02-21 12:43 | Neurology Consultation ---
Date of Consultation February 21, 2023 Assessment & Plan (1) Hx of brain surgery: (2) Episodic recurrent vertigo: Plan 82-year-old male with a history of left occipital craniotomy in 2020 to address a cerebral AV fistula. 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 For the past 6 months, he has been experiencing episodic vertigo with associated confusion, fluttering movements of the eyes, and gait difficulty. Episodes can be quite prolonged, lasting more than an hour and occur without obvious change in position or posture. He is currently asymptomatic this morning and has an intact neurological examination. Notably, I do not find a visual field deficit with simple bedside confrontation testing. Likewise, I do not find any nystagmus or other localizing deficits on his general neurological examination. He was able to stand up for me at bedside but does have persistent low back pain due to a recent lumbar spinal fusion surgery. I also note the minimal nonspecific pachymeningeal thickening and enhancement on brain MRI. He does not have signs or symptoms suggestive of meningitis or encephalitis. The finding is likely chronic and postsurgical. 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 I would recommend an EEG. We could try and obtain this test over the weekend although could also be done in a nonurgent fashion in the outpatient setting. I would also recommend a CT angiogram of the head and neck in light of his history of AV fistula repair. This test may also be beneficial to exclude vertebrobasilar insufficiency as a potential cause of his symptoms. If the CT angiography is unrevealing, would recommend a trial of levetiracetam, starting with 500 mg twice daily. Continue cardiac monitoring, it is possible the episodes could be related to an unidentified cardiac arrhythmia although a note from his PCP this past July indicates the patient has been following with cardiology and has had a loop recorder. Please feel free to contact me if you have any questions regarding this consultation. History of Present Illness Reason for Consultation: episodic vertigo/ataxia Requesting Physician: Dr. Maciel Attending Physician: Efren Ball MD History of Present Illness The patient is an 82-year-old male with a history of left occipital AV fistula surgery in 2020, in [place], complicated by intracranial hemorrhage, who has been experiencing episodic vertigo, dizziness, poor balance, for the past 6 months. Episodes occur intermittently, every few weeks without obvious triggering factor and can sometimes last more than an hour. He has also had some associated fluttering of the eyes, mild altered mental status, and gait difficulty. History also notable for fairly recent lumbar spinal fusion. He has been treated recently with corticosteroids and meclizine. He presented to the emergency department yesterday after an intense prolonged episode as above, with associated nausea. No associated headache, neck stiffness, or fevers or chills. He has been afebrile. He has a mild leukocytosis related to recent corticosteroids, improved this morning. Normal sodium level and renal function noted. Blood glucose modestly elevated. Normal calcium and magnesium. Transaminases modestly elevated. Testing for Lyme and Lyme coinfection/anaplasmosis unremarkable. A brain MRI completed yesterday was negative for acute process, no evidence of acute or subacute stroke. Chronic postsurgical changes within the left occipital lobe with associated encephalomalacia noted. There is mild nonspecific pachymeningeal thickening and enhancement. I did independently review these images and agree with these findings as described by radiology. A CT of the head was also completed which was negative for hemorrhage or acute process, again noting chronic postsurgical change. An electrocardiogram has revealed a normal sinus rhythm. I evaluated the patient with family at bedside this morning. He is currently asymptomatic and denies any recurrence of headache, vertigo, dizziness, or other specific or focal neurologic symptoms such as numbness, weakness, tremor, or difficulty with balance this morning. He does not have a known history of headache disorder or migraine. No known history of seizure disorder. Notably, he has never been observed to have an episode of collapse, loss of postural tone, loss of consciousness, stiffening or shaking of the limbs with any of the above episodes. Allergies Allergy/AdvReac Type Severity Reaction Status Date / Time niacin AdvReac Mild ITCHINESS, Verified 02/20/23 16:10 FAINTING Home Medications Medication Instructions Recorded Confirmed Type amlodipine 10 mg tablet 10 mg PO QAM 02/20/23 02/20/23 History cyclosporine 0.05 % eye drops in a 1 drp OPB BID 02/20/23 02/20/23 History dropperette duloxetine 60 mg capsule,delayed 60 mg PO DAILY 02/20/23 02/20/23 History release ezetimibe 10 mg tablet 10 mg PO QAM 02/20/23 02/20/23 History folic acid 1 mg tablet 1 mg PO QAM 02/20/23 02/20/23 History losartan 25 mg tablet 25 mg PO QAM 02/20/23 02/20/23 History losartan 50 mg tablet 50 mg PO QAM 02/20/23 02/20/23 History meclizine 12.5 mg tablet 12.5 mg PO TID PRN Dizziness 02/20/23 02/20/23 History metformin 500 mg tablet,extended 1,000 mg PO BID 02/20/23 02/20/23 History release 24 hr ondansetron HCl 8 mg tablet 8 mg PO Q8H PRN NAUSEA/VOMITING 02/20/23 02/20/23 History rosuvastatin 40 mg tablet 40 mg PO DAILY 02/20/23 02/20/23 History sennosides 8.6 mg-docusate sodium 2 tab PO HS 02/20/23 02/20/23 History 50 mg tablet (Stool Softener-Stimulant Laxative) Patient History Medical History Diabetes Fatty liver Hyperlipidemia Hypertension Vertigo Surgical History History of back surgery History of shoulder surgery Family History Other Family history non-contributory Social History Smoking Status: Never smoker Tobacco Type: Smokeless Tobacco (Dip or Chew) Second Hand Exposure: No; Do You Dip or Chew Tobacco: Yes; Hx Alcohol Use: No Hx Substance Use: No Preferred Language: Luxembourgish Communication Ability: Effective 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 Beliefs That Will Affect Care: None Current Living Situation: Spouse Other Information That Helps Us Care for You: No Feels Safe at Home: Yes Assistive Devices: Cane and Walker Review of Systems Constitutional: no fever and no chills Eyes: as per Subjective / HPI; no blind spots and no diplopia Ear, Nose, Mouth, Throat: + hearing loss; no ear pain and no tinnitus Respiratory: no cough and no dyspnea Cardiovascular: no chest pain and no palpitations Gastrointestinal: as per Subjective / HPI and + nausea Genitourinary: no dysuria Musculoskeletal: + back pain; no myalgia Integumentary: no rash and no lesions Neurologic: as per Subjective / HPI; no localized weakness, no loss of sensation, no syncope and no headache(s) Psychiatric: no depression and no anxiety Hematologic / Lymphatic: no easy bleeding and no easy bruising Exam (Neuro) Constitutional: well developed and well nourished; no acute distress Eyes: normal visual garcia by confrontation, PERRL and EOM intact bilaterally; no nystagmus and no papilledema Cardiovascular: Vessels: no carotid bruit Neurologic: Oriented to:: Person, Place and Time Memory: Short Term Intact and Remote Intact Attention: Span Intact and Concentration Intact Speech Fluency: negative Dysarthria or Dysfluency Fund of Knowledge: Current Events, Past History and Vocabulary Cranial Nerves: Normal II, III, IV, , V, VII, VIII, IX, X, XI and XII Motor Strength: Normal Lower Extremities and Normal Upper Extremities Motor Tone: Normal Lower Extremities and Normal Upper Extremities Muscle Bulk/Involuntary Movements: negative No Involuntary Movements or Muscle Atrophy Sensation: Light Touch Intact and Proprioception Intact; negative Pain/Temperature Intact or Vibration Intact Coordination: Limited Balance; negative Dysdiadochokinesia, Finger-Nose Abnormal or Heel-Harris Abnormal Deep Tendon Reflexes: Rt Triceps: 2+, Lt Triceps: 2+, Rt Biceps: 2+, Lt Biceps: 2+, Rt Brachioradialis: 2+, Lt Brachioradialis: 2+, Rt Patellar: 2+, Lt Patellar: 2+, Rt Ankle: 1+ and Lt Ankle: 1+ Special Tests: negative Babins ki Present Gait: Ataxic Results & Data Vital Signs (Past 12 Hours) Vital Signs Temp Pulse Pulse Resp BP Pulse Ox O2 Del Method 02/21/23 11:50 36.4 C L 84 16 155/72 H 94 Room Air 02/21/23 11:27 82 02/21/23 07:52 36.7 C 86 20 133/68 92 Room Air 02/21/23 04:00 37.1 C 87 138/66 94 Room Air Laboratory Results WBC 12.32, hemoglobin 13.9, hematocrit 40.2, platelet count 279, sodium 139, potassium 4.0, BUN 13, creatinine 0.70, glucose 160, hemoglobin A1c 7.1, calcium 9.2, magnesium 2.0, AST 52, ALT 145, troponin 18.5, urinalysis negative, screening for Lyme and Lyme coinfection negative, SARS-CoV-2 testing negative. Diagnostic Findings Imaging and ECG as described in the HPI. Coding Level of Care Code 85984 INT INP/OBS CARE MIN Diagnoses Hx of brain surgery Z98.890 Episodic recurrent vertigo H81.90
[2023-02-21] MEDS ORDERED: OPTIRAY 320 125ml IV ONE (13:23)
--- NOTE | 2023-02-21 16:07 | CT Scan Report ---
HEAD & NECK CTA HISTORY: Vertigo. h/o AV fistula repair TECHNIQUE: Multiaxial CT images of the head were performed both before and after the intravenous admi nistration of contrast to evaluate the major cerebral vessels. Multiaxial CT images of the neck were also performed following the intravenous administration of contrast to evaluate the major cervical ve ssels. Maximum intensity projection images were also obtained. A dose lowering technique was utilized adhering to the principles of ALARA. COMPARISON: Head CT and brain MRI 02/20/2023. FINDINGS: The paranasal sinuses and mastoid air cells are clear. Prior left occipital/suboccipital craniectomy with overlying metallic mesh. Small focus of encephalomalacia within the left posterior occipital lob e, unchanged. Prior bilateral lens replacement. The ventricles are normal in size. There is no mass, hematoma, midline shift, acute infarct. Visualized intracranial internal carotid arteries, distal lc tebral arteries, and basilar artery are widely patent. 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 The major dural venous sinuses are patent. There is a persistent right posterior circulation. No evidence for an AV malformation. The aortic arch and proximal great vessels are widely patent. There is no significant stenosis, occ lusion, or dissection identified within the bilateral common carotid, internal carotid, or vertebral arteries. Cervical spinal fusion hardware is noted IMPRESSION: 1. No significant stenosis, occlusion, or aneurysm within the [place]. 2. No significant stenosis, occlusion, or dissection identified within the carotid or vertebral arter ies. 3. No acute infarct or intracranial hemorrhage. 4. Chronic and postoperative changes as described above. ACT 112: Negative or not required by law. Electronically signed by: Tello Woods M.D. 02/21/2023 4:05 PM
--- NOTE | 2023-02-21 16:07 | CT Scan Report ---
HEAD & NECK CTA HISTORY: Vertigo. h/o AV fistula repair TECHNIQUE: Multiaxial CT images of the head were performed both before and after the intravenous admi nistration of contrast to evaluate the major cerebral vessels. Multiaxial CT images of the neck were also performed following the intravenous administration of contrast to evaluate the major cervical ve ssels. Maximum intensity projection images were also obtained. A dose lowering technique was utilized adhering to the principles of ALARA. COMPARISON: Head CT and brain MRI 02/20/2023. FINDINGS: The paranasal sinuses and mastoid air cells are clear. Prior left occipital/suboccipital craniectomy with overlying metallic mesh. Small focus of encephalomalacia within the left posterior occipital lob e, unchanged. Prior bilateral lens replacement. The ventricles are normal in size. There is no mass, hematoma, midline shift, acute infarct. Visualized intracranial internal carotid arteries, distal lc tebral arteries, and basilar artery are widely patent. 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 The major dural venous sinuses are patent. There is a persistent right posterior circulation. No evidence for an AV malformation. The aortic arch and proximal great vessels are widely patent. There is no significant stenosis, occ lusion, or dissection identified within the bilateral common carotid, internal carotid, or vertebral arteries. Cervical spinal fusion hardware is noted IMPRESSION: 1. No significant stenosis, occlusion, or aneurysm within the [place]. 2. No significant stenosis, occlusion, or dissection identified within the carotid or vertebral arter ies. 3. No acute infarct or intracranial hemorrhage. 4. Chronic and postoperative changes as described above. ACT 112: Negative or not required by law. Electronically signed by: Tello Woods M.D. 02/21/2023 4:05 PM
[2023-02-21] MEDS: levETIRAcetam 500 MG TAB PO SCH (20:46)
[2023-02-21] MEDS: DOCUSATE SODIUM/SENNA 50/8.6MG TAB PO SCH (20:46)
--- NOTE | 2023-02-21 21:02 | Electrocardiogram Report ---
Test Reason : Blood Pressure : / mmHG Vent. Rate : 078 BPM Atrial Rate : 078 BPM P-R Int : 160 ms QRS Dur : 142 ms QT Int : 416 ms P-R-T Axes : 000 059 226 degrees QTc Int : 474 ms Normal sinus rhythm Right bundle branch block T wave abnormality, consider inferolateral ischemia Abnormal ECG No previous ECGs available Confirmed by Paul Busby ([id number]) on 02/21/2023 9:02:17 PM Referred By: Confirmed By:Paul Busby
[2023-02-22 07:10] LABS: Basophils # (auto) 0.04 K/uL (0-0.2); Basophils % (auto) 0.3 %; Eosinophils # (auto) 0.19 K/uL (0-0.50); Eosinophils % (auto) 1.6 %; Hematocrit (blood only) 39.9 % (42.0-52.0); Hemoglobin 13.6 g/dl (14.0-18.0); Immature Granulocytes # (auto) 0.05 K/uL (0.01-0.20); Immature Granulocytes % (auto) 0.4 %; Lymphocytes # (auto) 3.36 K/uL (1.2-3.4); Lymphocytes % (auto) 28.6 %; Mean Corpuscular Hemoglobin 29.6 pg (25.0-34.0); Mean Corpuscular Hgb Conc 34.1 g/dL (32.0-36.0); Mean Corpuscular Volume 86.7 fL (80.0-100.0); Monocytes # (auto) 0.74 K/uL (0.11-0.59); Monocytes % (auto) 6.3 %; Neutrophils # (auto) 7.37 K/uL (1.40-6.50); Neutrophils % (auto) 62.8 %; Platelet Count 259 K/uL (130-400); RDW Coefficient of Variation 14.4 % (11.5-14.5); RDW Standard Deviation 45.9 fL (36.4-46.3); White Blood Count 11.75 K/ul (4.8-10.8)
[2023-02-22 07:37] LABS: BUN Creatinine Ratio 22.9 (10-20); Calcium 8.8 mg/dl (8.6-10.3); Creatinine Clr Calc Pharmacy 79.2 ml/min; Est GFR (African American) 103.3 ml/min; Est GFR (Non-African American) 89.1 ml/min; Potassium 3.9 mmol/L (3.5-5.1)
[2023-02-22] MEDS: LANTUS PER UNIT CHARGE SQ SCH ×2 (08:32→20:10)
[2023-02-22] MEDS: INSULIN ASPART PER UNIT CHARGE SC SCH ×4 (08:33→20:08)
[2023-02-22] MEDS: EZETIMIBE 10 MG TABLET PO SCH (10:08)
[2023-02-22] MEDS: DULoxetine HCL 60 MG CAP PO SCH (10:08)
[2023-02-22] MEDS: amLODIPine BESYLATE 5 MG TAB PO SCH (10:08)
[2023-02-22] MEDS: ROSUVASTATIN CALCIUM 20 MG TAB PO SCH (10:08)
[2023-02-22] MEDS: levETIRAcetam 500 MG TAB PO SCH ×2 (10:08→20:11)
[2023-02-22] MEDS: LOSARTAN POTASSIUM 50 MG TAB PO SCH (10:08)
[2023-02-22] MEDS: ENOXAPARIN INJ 40 MG/0.4 ML SYR SQ SCH (10:08)
[2023-02-22] MEDS: LOSARTAN POTASSIUM 25 MG TAB PO SCH (10:08)
[2023-02-22] MEDS: DOCUSATE SODIUM/SENNA 50/8.6MG TAB PO SCH (10:08)
[2023-02-22] MEDS: THIAMINE HCL 100 MG TAB PO SCH ×2 (10:29→20:10)
[2023-02-22] MEDS: CYANOCOBALAMIN (B-12) 500 MCG TABLET PO SCH (10:29)
--- NOTE | 2023-02-22 15:25 | XCELERA ---
[id number]
[2023-02-22] MEDS: ACETAMINOPHEN 500 MG TAB PO SCH ×2 (17:38→20:11)
[2023-02-22] MEDS: DICLOFENAC SOD 1% GEL 100 GM TUBE EXT SCH ×2 (17:40→20:10)
--- NOTE | 2023-02-22 20:44 | Hospitalist Progress Note ---
Date of Service February 22, 2023 Assessment & Plan (1) Episodic recurrent vertigo: Plan: 6+ months of attacks of severe vertigo with N/V Attack just prior to admission - patient was sitting in chair watching TV Has associated photophobia, phonophobia with attacks Following these events he goes to sleep - sometimes for many hours Since admission his vertigo has been resolved and he is able to ambulate without vertigo Does have h/o migraines as a young adult - they were unilateral in location, had associated nausea, etc But no headaches in many years (30-40+ years) Seen by Dr Mooney [facility] Neuro Differential - basilar migraines vs VBI vs partial aware seizures vs other CTA head/neck obtained - NO vascular disease present (no aneurysm, stenosis, etc) MRI brain negative for acute CVA MRI brain showed old left occipital encephalomalacia + mild, nonspecific pa chymeningeal thickening/enhancement Dr Mooney feels the meningeal enhancement is likely old, post-surgical change from his prior craniotomy He has had no features/signs/symptoms of infectious meningitis Dr Mooney 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 daily Continue zetia (3) Diabetes: Plan: Patient is on metformin 1000 mg p.o. twice daily -- hold while here. Can resume at d/c Cont Lantus 5 units twice daily with novolog sliding scale Hba1c is 7.1% (4) Hypertension: Plan: controlled Continue losartan 75 mg p.o. daily Continue amlodipine 10 mg p.o. daily has LVH on echo today - due to long-standing HTN?? I do not have a prior echo - follows with Dr Kevin Walker in [place] - will need to f/u with him post-discharge echo placed on disc for patient to take home ideally patient is on beta adryan due to LVH (5) Elevated liver enzymes: Plan: limited outpatient records suggest fatty liver at minimum records also report he has had a liver biopsy - details uncertain [facility] outpatient note mentions he has DUBOIS? AST/ALT have trended down; they are not in normal range, but have improved and are acceptable (6) H/O lumbosacral spine surgery: Plan: 07/13/2015 - L4-L5 surgery (per limited outpatient records); details uncertain repeat surgery - spring 2022 at [facility] (per daughter) details uncertain per daughter lumbar fusion was done? limited outpatient records reference epidural steroid injections for spine in 2021 that were not helpful patient reports b/l leg numbness - mainly in his thighs - along with b/l leg weakness L>R PT, OT evals appreciated; cleared for d/c home with family due to neuropathy and leg weakness checked B12 - he is deficient send B1 - this is pending place on vitamin B12 1000mcg daily x 6-12 months while awaiting B1 level - thiamine 200mg BID x 1 month consider outpatient EMG studies of legs - Dr Mooney's office can help with this (7) History of cervical spinal surgery: Plan: per limited outpatient [facility] records - cervical diskectomy - 08/2011 details uncertain otherwise conceivably c-spine disease could be contributing to leg weakness (8) RAFAEL (obstructive sleep apnea): Plan: on CPAP (9) Psoriatic arthritis: Plan: apparently was on methotrexate in past and Humira - no longer on Rx does not follow with rheum any longer uncertain if he has had psoriatic arthritis vs RA (10) Implantable loop recorder present: Plan: details uncertain about implantation date, etc interrogation completed today since start of 2022 only 1 event --> 08/28/22 he had a 3 sec pause only; no other dysrhythmia or AV block (11) History of craniotomy: Plan: 11/2020 - [facility] 2nd to cerebral dural AV fistula had repeat surgery in 12/2020 occipital in location based on current imaging here at [facility] certainly the encephalomalacia of the occipital lobe on imaging is a risk factor for seizure (12) Bilateral leg weakness: Plan: present for months per family multiple possibilities for this - c-spine disease, l-spine disease (although recent l-spine surgery did not apparently lead to improvement in weakness), nutritional deficiency, etc has neuropathy of legs - outpatient EMG study ? 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 again details unknown patient is poor historian (14) B12 deficiency: Plan: level is <200 start B12 orally - 1000mcg daily x 6-12 months (15) LVH (left ventricular hypertrophy): Plan: severe on echo today mild asymmetry of septum also seen will need close f/u with Dr Kevin Walker in [place] for the LVH consider beta adryan could consider cardiac MRI as outpatient (16) Arthritis of knee: Plan: b/l OA likely family was told he ultimately needs TKR no evidence of gouty arthritis of knees place on tylenol 1gm TID voltaren gel 4gm QID either knee (17) Abnormal EKG: Plan: EKGs here with NSR, RBBB, and inverted T waves anteriorly; he also has ST flattening in the limb leads I do not have prior EKGs to compare Thus, contacted the on-call linux security administrator covering Dr Walker this weekend in [place] He reported that in 2021 his EKG showed RBBB with lateral ST changes c/w our EKG. no recent ischemic symptoms previous cardiac cath about 10 years ago (date?) was normal Plan DVT proph - lovenox daily family updated at bedside once again by the time I had spoken with on-call cardiology in [place] as well as receiving official echo report it was quite late in the day patient and family requested to stay until the am will plan to repeat labs in am and also obtain EEG in am can likely d/c tomorrow am following the above Admission and Anticipated Discharge Date Admission Date: February 21, 2023 Subjective tele stable overnight had loop recorder interrogated; only event was a 3 sec pause on 08/28/22 otherwise no dysrhythmia, AV block or longer pauses since that singular event patient feeling well eating well ambulating ok denies recurrent vertigo spells pt's family reports he had a cardiac cath in [place] - perhaps 10 years ago? sees Dr Kevin Walker with [place] [facility] last visit - 1 year ago roughly at that time a stress test or cath was advised but patient declined they were not sure why those procedures were recommended he denies any chest pain either at rest or with exertion does get dyspnea with some activities of daily living had patient walk in hallway with staff - o2 sats in room air did not drop below the mid 90s Review of Systems Review of Systems: gen - no fevers or chills cv - no chest pain, no orthopnea pulm - no dyspnea at rest, no cough GI - no nausea/emesis Physical Exam Physical Exam: gen - lying in bed comfortably, NAD neck - no JVD mouth - MMM heart - RRR, s1 s2, no murmur lungs - CTA b/l abd - soft NT ND BS+ ext - no edema, pulses 2+ b/l neuro - right hip flexion near 5/5; left hip flexion 4-5/5 strength; distal leg flexion/extension 5/5; handgrip 5/5; no proximal muscle weakness of either arm psych - a/o x 3 musculo - crepitus b/l knees with passive extension/flexion; no warmth or swelling from the knees Results & Data Results & Data Vital Signs (Past 12 Hours) Vital Signs Temp Pulse Pulse Resp BP Pulse Ox O2 Del Method 02/22/23 20:20 36.8 C 84 20 135/64 92 Room Air 02/22/23 15:52 75 02/22/23 15:36 36.5 C 75 16 124/69 92 Room Air 02/22/23 11:50 36.6 C 80 20 116/63 92 Room Air Laboratory Results Laboratory Results - last 24 hr 02/22/23 02/22/23 02/22/23 06:44 06:44 06:44 WBC 11.75 H RBC 4.60 L Hgb 13.6 L Hct 39.9 L MCV 86.7 MCH 29.6 MCHC 34.1 RDW Std Deviation 45.9 RDW Coeff of Goran 14.4 Plt Count 259 MPV 11.0 Immature Gran % (Auto) 0.4 Neut % (Auto) 62.8 Lymph % (Auto) 28.6 Walton % (Auto) 6.3 Eos % (Auto) 1.6 Baso % (Auto) 0.3 Neut # (Auto) 7.37 H Lymph # (Auto) 3.36 Walton # (Auto) 0.74 H Eos # (Auto) 0.19 Baso # (Auto) 0.04 Immature Gran # (Auto) 0.05 Sodium 137 Potassium 3.9 Chloride 103 Carbon Dioxide 29 Anion Gap 5 BUN 16 Creatinine 0.70 Est Cr Clr Drug Dosing 79.2 Est GFR ( Amer) 103.3 Est GFR (Non-Af Amer) 89.1 BUN/Creatinine Ratio 22.9 H Glucose 136 H POC Glucose Calcium 8.8 AST 40 H ALT 111 H Vitamin B1 Vitamin B12 TSH 2.321 02/22/23 02/22/23 02/22/23 06:44 06:44 07:19 WBC RBC Hgb Hct MCV MCH MCHC RDW Std Deviation RDW Coeff of Goran Plt Count MPV Immature Gran % (Auto) Neut % (Auto) Lymph % (Auto) Walton % (Auto) Eos % (Auto) Baso % (Auto) Neut # (Auto) Lymph # (Auto) Walton # (Auto) Eos # (Auto) Baso # (Auto) Immature Gran # (Auto) Sodium Potassium Chloride Carbon Dioxide Anion Gap BUN Creatinine Est Cr Clr Drug Dosing Est GFR ( Amer) Est GFR (Non-Af Amer) BUN/Creatinine Ratio Glucose POC Glucose 136 H Calcium AST ALT Vitamin B1 Pending Vitamin B12 189 TSH 02/22/23 02/22/23 02/22/23 11:35 16:19 20:03 WBC RBC Hgb Hct MCV MCH MCHC RDW Std Deviation RDW Coeff of Goran Plt Count MPV Immature Gran % (Auto) Neut % (Auto) Lymph % (Auto) Walton % (Auto) Eos % (Auto) Baso % (Auto) Neut # (Auto) Lymph # (Auto) Walton # (Auto) Eos # (Auto) Baso # (Auto) Immature Gran # (Auto) Sodium Potassium Chloride Carbon Dioxide Anion Gap BUN Creatinine Est Cr Clr Drug Dosing Est GFR ( Amer) Est GFR (Non-Af Amer) BUN/Creatinine Ratio Glucose POC Glucose 134 H 107 H 107 H Calcium AST ALT Vitamin B1 Vitamin B12 TSH Diagnostic Findings echo: PG Care Time/CCT Total # of Minutes Spent Total Time Spent with Patient: Total time spent is greater than 50% in coordination of care (as documented) at patient's floor/unit and/or counseling patient: Coding Level of Care Code 65246 SUB INP/OBS CARE 3/50MIN Diagnoses Episodic recurrent vertigo H81.90 Hyperlipidemia E78.5 Diabetes E11.9 Hypertension I10 Elevated liver enzymes R74.8 H/O lumbosacral spine surgery Z98.890 History of cervical spinal surgery Z98.890 RAFAEL (obstructive sleep apnea) G47.33 Psoriatic arthritis L40.50 Implantable loop recorder present Z95.818 History of craniotomy Z98.890 Bilateral leg weakness R29.898 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
[2023-02-23 07:44] LABS: Hematocrit (blood only) 38.6 % (42.0-52.0); Hemoglobin 13.2 g/dl (14.0-18.0); Mean Corpuscular Hemoglobin 29.5 pg (25.0-34.0); Mean Corpuscular Hgb Conc 34.2 g/dL (32.0-36.0); Mean Corpuscular Volume 86.4 fL (80.0-100.0); Mean Platelet Volume 11.3 fL (9.4-12.4); Platelet Count 236 K/uL (130-400); RDW Coefficient of Variation 14.4 % (11.5-14.5); RDW Standard Deviation 45.4 fL (36.4-46.3); Red Blood Count 4.47 M/uL (4.70-6.10); White Blood Count 7.04 K/ul (4.8-10.8)
[2023-02-23] MEDS: CYANOCOBALAMIN (B-12) 500 MCG TABLET PO SCH (07:49)
[2023-02-23] MEDS: DICLOFENAC SOD 1% GEL 100 GM TUBE EXT SCH ×3 (07:49→17:23)
[2023-02-23] MEDS: amLODIPine BESYLATE 5 MG TAB PO SCH (07:49)
[2023-02-23] MEDS: ACETAMINOPHEN 500 MG TAB PO SCH ×2 (07:49→13:58)
[2023-02-23] MEDS: THIAMINE HCL 100 MG TAB PO SCH (07:50)
[2023-02-23] MEDS: LOSARTAN POTASSIUM 50 MG TAB PO SCH (07:50)
[2023-02-23] MEDS: DULoxetine HCL 60 MG CAP PO SCH (07:50)
[2023-02-23] MEDS: levETIRAcetam 500 MG TAB PO SCH (07:50)
[2023-02-23] MEDS: LOSARTAN POTASSIUM 25 MG TAB PO SCH (07:50)
[2023-02-23] MEDS: EZETIMIBE 10 MG TABLET PO SCH (07:50)
[2023-02-23] MEDS: ENOXAPARIN INJ 40 MG/0.4 ML SYR SQ SCH (07:50)
[2023-02-23] MEDS: ROSUVASTATIN CALCIUM 20 MG TAB PO SCH (07:50)
[2023-02-23] MEDS: LANTUS PER UNIT CHARGE SQ SCH (08:01)
[2023-02-23] MEDS: INSULIN ASPART PER UNIT CHARGE SC SCH ×2 (08:02→12:50)
[2023-02-23 08:11] LABS: Potassium 3.9 mmol/L (3.5-5.1)
[2023-02-23 08:12] LABS: BUN Creatinine Ratio 20.3 (10-20); Calcium 8.9 mg/dl (8.6-10.3); Creatinine Clr Calc Pharmacy 86.5 ml/min; Est GFR (African American) 107.2 ml/min; Est GFR (Non-African American) 92.5 ml/min
--- NOTE | 2023-02-23 08:57 | Electroencephalogram ---
EEG Procedure Note Date of Service February 23, 2023 Start / End Times Start Time: 0640 End Time: [address] Mooney History 82-year-old with history of seizure-like episodes Home Medication List Medication Instructions Recorded Confirmed Type amlodipine 10 mg tablet 10 mg PO QAM 02/20/23 02/20/23 History cyclosporine 0.05 % eye drops in a 1 drp OPB BID 02/20/23 02/20/23 History dropperette duloxetine 60 mg capsule,delayed 60 mg PO DAILY 02/20/23 02/20/23 History release ezetimibe 10 mg tablet 10 mg PO QAM 02/20/23 02/20/23 History folic acid 1 mg tablet 1 mg PO QAM 02/20/23 02/20/23 History losartan 25 mg tablet 25 mg PO QAM 02/20/23 02/20/23 History losartan 50 mg tablet 50 mg PO QAM 02/20/23 02/20/23 History meclizine 12.5 mg tablet 12.5 mg PO TID PRN Dizziness 02/20/23 02/20/23 History metformin 500 mg tablet,extended 1,000 mg PO BID 02/20/23 02/20/23 History release 24 hr ondansetron HCl 8 mg tablet 8 mg PO Q8H PRN NAUSEA/VOMITING 02/20/23 02/20/23 History rosuvastatin 40 mg tablet 40 mg PO DAILY 02/20/23 02/20/23 History sennosides 8.6 mg-docusate sodium 2 tab PO HS 02/20/23 02/20/23 History 50 mg tablet (Stool Softener-Stimulant Laxative) Inpatient Medication List Acetaminophen (Acetaminophen 500 Mg Tab) 1,000 mg PO TID [facility] Stop: 03/24/23 16:44 Last Admin: 02/23/23 07:49 Dose: 1,000 mg Documented By: Admin: 02/22/23 20:11 Dose: 1,000 mg Documented By: Admin: 02/22/23 17:38 Dose: 1,000 mg Documented By: MARY Amlodipine Besylate (Amlodipine Besylate 5 Mg Tab) 10 mg PO QAM [facility] Stop: 03/23/23 08:59 Last Admin: 02/23/23 07:49 Dose: 10 mg Documented By: Admin: 02/22/23 10:08 Dose: 10 mg Documented By: Admin: 02/21/23 08:52 Dose: 10 mg Documented By: MARY Cyanocobalamin (Cyanocobalamin (B-12) 500 Mcg Tablet) 1,000 mcg PO QAM [facility] Stop: 03/24/23 08:59 Last Admin: 02/23/23 07:49 Dose: 1,000 mcg Documented By: Admin: 02/22/23 10:29 Dose: 1,000 mcg Documented By: MARY Diclofenac Sodium (Diclofenac Sod 1% Gel 100 Gm Tube) 4 gm EXT QID [facility]; Protocol Stop: 03/24/23 16:59 Last Admin: 02/23/23 07:49 Dose: 4 gm Documented By: Admin: 02/22/23 20:10 Dose: 4 gm Documented By: Admin: 02/22/23 17:40 Dose: 4 gm Documented By: MARY Duloxetine HCl (Duloxetine Hcl 60 Mg Cap) 60 mg PO DAILY [facility] Stop: 03/23/23 08:59 Last Admin: 02/23/23 07:50 Dose: 60 mg Documented By: Admin: 02/22/23 10:08 Dose: 60 mg Documented By: Admin: 02/21/23 08:52 Dose: 60 mg Documented By: MARY Ezetimibe (Ezetimibe 10 Mg Tablet) 10 mg PO [facility] Stop: 03/23/23 08:59 Last Admin: 02/23/23 07:50 Dose: 10 mg Documented By: Admin: 02/22/23 10:08 Dose: 10 mg Documented By: Admin: 02/21/23 08:52 Dose: 10 mg Documented By: MARY Enoxaparin Sodium (Enoxaparin Inj 40 Mg/0.4 Ml Syr) 40 mg SQ [facility] Stop: 03/23/23 08:59 Last Admin: 02/23/23 07:50 Dose: 40 mg Documented By: Admin: 02/22/23 10:08 Dose: 40 mg Documented By: Admin: 02/21/23 08:52 Dose: 40 mg Documented By: MARY Insulin Aspart (Insulin Aspart Per Unit Charge) 0 units SC ACHS [facility] Stop: 03/22/23 22:54 Last Admin: 02/23/23 08:02 Dose: 2 units Documented By: NIKKY Co-signed By: LISA Admin: 02/22/23 20:08 Dose: Not Given Documented By: Admin: 02/22/23 17:18 Dose: 1 units Documented By: MARY Co-signed By: ZACK Admin: 02/22/23 12:35 Dose: 1 units Documented By: MARY Co-signed By: ZACK Admin: 02/22/23 08:33 Dose: 2 units Documented By: MARY Co-signed By: ZACK Admin: 02/21/23 20:45 Dose: Not Given Documented By: Admin: 02/21/23 17:05 Dose: 3 units Documented By: MARY Co-signed By: VENTURA Admin: 02/21/23 12:23 Dose: 2 units Documented By: MARY Co-signed By: VENTURA Admin: 02/21/23 08:49 Dose: 2 units Documented By: MARY Co-signed By: MARIUM Admin: 02/20/23 23:13 Dose: 1 units Documented By: SPARKLE Co-signed By: GEO Insulin Glargine (Lantus Per Unit Charge) 5 units SQ BID [facility] Stop: 03/22/23 22:54 Last Admin: 02/23/23 08:01 Dose: 5 units Documented By: NIKKY Co-signed By: LISA Admin: 02/22/23 20:10 Dose: 5 units Documented By: SPARKLE Co-signed By: HIGINIO Admin: 02/22/23 08:32 Dose: 5 units Documented By: MARY Co-signed By: ZACK Admin: 02/21/23 20:46 Dose: 5 units Documented By: SPARKLE Co-signed By: HIGINIO Admin: 02/21/23 08:49 Dose: 5 units Documented By: MARY Co-signed By: MARIUM Admin: 02/20/23 23:13 Dose: 5 units Documented By: SPARKLE Co-signed By: GEO Levetiracetam (Levetiracetam 500 Mg Tab) 500 mg PO BID [facility] Stop: 03/23/23 20:59 Last Admin: 02/23/23 07:50 Dose: 500 mg Documented By: Admin: 02/22/23 20:11 Dose: 500 mg Documented By: Admin: 02/22/23 10:08 Dose: 500 mg Documented By: Admin: 02/21/23 20:46 Dose: 500 mg Documented By: SPARKLE Losartan Potassium (Losartan Potassium 50 Mg Tab) 50 mg PO QAM [facility] Stop: 03/23/23 08:59 Last Admin: 02/23/23 07:50 Dose: 50 mg Documented By: Admin: 02/22/23 10:08 Dose: 50 mg Documented By: Admin: 02/21/23 08:52 Dose: 50 mg Documented By: MARY Losartan Potassium (Losartan Potassium 25 Mg Tab) [facility] Stop: 03/23/23 08:59 Last Admin: 02/23/23 07:50 Dose: 25 mg Documented By: Admin: 02/22/23 10:08 Dose: 25 mg Documented By: Admin: 02/21/23 08:53 Dose: 25 mg Documented By: MARY Meclizine HCl (Meclizine 12.5 Mg Tab) 12.5 mg PO TID PRN PRN Reason: Dizziness Stop: 03/22/23 22:54 Last Admin: 02/22/23 20:43 Dose: 12.5 mg Documented By: HIGINIO Ondansetron HCl (Ondansetron Inj 2 Mg/Ml 2 Ml Vial) 4 mg IV Q6H PRN PRN Reason: Nausea And Vomiting Stop: 03/22/23 22:54 Last Admin: 02/22/23 20:20 Dose: 4 mg Documented By: SPARKLE Rosuvastatin Calcium (Rosuvastatin Calcium 20 Mg Tab) 40 mg PO DAILY [facility] Stop: 03/23/23 08:59 Last Admin: 02/23/23 07:50 Dose: 40 mg Documented By: Admin: 02/22/23 10:08 Dose: 40 mg Documented By: Admin: 02/21/23 08:53 Dose: 40 mg Documented By: MARY Senna/Docusate Sodium (Docusate Sodium/Senna 50/8.6mg Tab) 2 tab PO HS [facility] Stop: 03/22/23 22:54 Last Admin: 02/22/23 10:08 Dose: 2 tab Documented By: Admin: 02/21/23 20:46 Dose: 2 tab Documented By: Admin: 02/20/23 23:13 Dose: 2 tab Documented By: SPARKLE Thiamine HCl (Thiamine Hcl 100 Mg Tab) 200 mg PO BID [facility] Stop: 03/24/23 08:59 Last Admin: 02/23/23 07:50 Dose: 200 mg Documented By: Admin: 02/22/23 20:10 Dose: 200 mg Documented By: Admin: 02/22/23 10:29 Dose: 200 mg Documented By: MARY Discontinued Medications Acetaminophen (Acetaminophen 325 Mg Tab) 650 mg PO Q4H PRN PRN Reason: pain/fever Stop: 03/22/23 22:54 Last Admin: 02/22/23 13:46 Dose: 650 mg Documented By: MARY Gadobutrol (Gadobutrol 65ml Vial) 9 ml IV ONCE ONE Stop: 02/20/23 21:15 Last Admin: 02/20/23 21:15 Dose: 9 ml Documented By: MICHAEL Sodium Chloride (Nss) 500 mls @ 999 mls/hr IV .Q31M STA Stop: 02/20/23 14:01 Last Infusion: 02/20/23 14:46 Dose: 0 mls/hr Documented By: Admin: 02/20/23 13:53 Dose: 999 mls/hr Documented By: DEMOND Sodium Chloride (Nss 1000ml) 500 mls @ 999 mls/hr IV .Q31M ONE Stop: 02/20/23 15:50 Last Infusion: 02/20/23 16:22 Dose: 0 mls/hr Documented By: Admin: 02/20/23 15:36 Dose: 999 mls/hr Documented By: SOPHIA Ioversol (Optiray 320 125ml) 120 ml IV ONCE ONE Stop: 02/21/23 13:24 Last Admin: 02/21/23 13:23 Dose: 120 ml Documented By: CHEN Lorazepam (Lorazepam 2 Mg/1 Ml Vial) 0.5 mg IV NOW STA Stop: 02/20/23 15:21 Last Admin: 02/20/23 16:11 Dose: 0.5 mg Documented By: SOPHIA Meclizine HCl (Meclizine Hcl 25 Mg Tab) 25 mg PO NOW STA Stop: 02/20/23 17:21 Last Admin: 02/20/23 17:28 Dose: 25 mg Documented By: SOPHIA Ondansetron HCl (Ondansetron Inj 2 Mg/Ml 2 Ml Vial) 4 mg IV NOW STA Stop: 02/20/23 13:32 Last Admin: 02/20/23 13:53 Dose: 4 mg Documented By: DEMOND Description This is a 21 electrode EEG with a single channel dedicated to limited EKG. The electrodes were placed in accordance with the International 10-20 system. Interpretation The predominant background activity consists of an irregular 8 Hz activity, of up to 30 mV in amplitude,seen symmetrically distributed over the posterior head regions bilaterally. This activity attenuates a little with eye-opening and other alerting procedures. Photic stimulation was performed and elicited no change in the background activity and no abnormal responses were seen. Hyperventilation was not performed. A minimal amount of muscle and movement artifact activity contaminated the recording and did not hinder interpretation to any significant degree. Throughout the waking portion of the recording, no focal abnormalities, abnormal slow activity, or potentially epileptogenic discharges are seen. The patient entered the drowsy state and brief periods of stage II sleep with no further activation. In summary, this EEG was normal during wakefulness and sleep. No focal abnormalities, potentially epileptogenic discharges, or abnormal slow activity was seen. Clinical Correlation The abscence of potentially epileptogenic activity does not exclude a seizure disorder, since interictally, EEGs can be normal. Clinical correlation is required. [facility] EEG Procedure Codes Indication for Procedure (1) Seizure-like activity: Neurology Neurology: 23357 EEG include record awake & sleepy
--- NOTE | 2023-02-23 14:06 | Discharge Summary ---
Date of Service February 23, 2023 Admission HPI Per Admitting Provider Almaz Kerns is an 82yo male with history of DM, HTN, HLP and fatty liver disease presenting with acute on chronic vertigo. Patient reports he has been experiencing intermittent episodes of vertigo for the last 6 months. He is unable to identify any instigating factors. Episodes occur intermittently sometimes every 1-2 days and sometimes every couple of weeks. The sensation lasts 1-2 hours. Patient "feels like his head is a bobble head" and has associated weakness of his legs bilaterally with difficulty standing and gait instability. His at bedside also reports that he appears slightly confused during the episodes and his speech may be slightly slurred. Patient reportedly becomes very tired following these episodes and falls asleep for an extended period of time - sometimes over 12 hours. Patient has been treated by his PCP for this issue with meclizine. He states that he does get some relief with taking meclizine. Patient had an episode of dizziness today that was more severe than prior episodes that started around 10:30 AM while he was sitting in his chair at home. He had nausea and dry heaving. No headache or focal weakness. No additional complaints at this time. Patient otherwise denies fever, chills, chest pain, palpitations, cough, shortness of breath. Denies abdominal pain, diarrhea. He does have a history of brain surgery in November and December of [address] [facility] for what sounds to be a fistula. He was last seen in followup for this issue 2 years ago and is reported to be stable. In the ER patient is afebrile, hemodynamically stable, no acute distress ER course: Meclizine 25 mg p.o. Ativan 0.5 mg IV Normal saline 500 mL x 2 Zofran 4 mg IV Principal Diagnosis episodic vertigo Discharge Exam gen - lying in bed comfortably, NAD neck - no JVD mouth - MMM heart - RRR, s1 s2, no murmur lungs - CTA b/l abd - soft NT ND BS+ ext - no edema, pulses 2+ b/l neuro - right hip flexion near 5/5; left hip flexion 4-5/5 strength; distal leg flexion/extension 5/5; handgrip 5/5; no proximal muscle weakness of either arm psych - a/o x 3 musculo - crepitus b/l knees with passive extension/flexion; no warmth or swelling from the knees Discharge Data Allergies Allergy/AdvReac Type Severity Reaction Status Date / Time niacin AdvReac Mild ITCHINESS, Verified 02/20/23 16:10 FAINTING Consultations 02/20/23 19:34 ED Decision to Admit Stat 02/21/23 11:13 Consult Neurology Routine 02/21/23 13:00 HIM [Consult Health Information Management] Routine Ordered Studies 02/20/23 15:20 CT head/brain wo con Stat MR brain wo/w con Stat 02/21/23 12:51 CT angio neck with con Routine 02/21/23 12:53 CT angio head wo/w Routine Hospital Course (1) Episodic recurrent vertigo: 6+ months of attacks of severe vertigo with N/V Attack just prior to admission - patient was sitting in chair watching TV Has associated photophobia, phonophobia with attacks Following these events he goes to sleep - sometimes for many hours Since admission his vertigo has been resolved and he is able to ambulate without vertigo Does have h/o migraines as a young adult - they were unilateral in location, had associated nausea, etc But no headaches in many years (30-40+ years) [place] [facility] [place] - basilar migraines vs VBI vs partial aware seizures vs other CTA head/neck obtained - NO vascular disease present (no aneurysm, stenosis, etc) MRI brain negative for acute CVA MRI brain showed old left occipital encephalomalacia + mild, nonspecific pachymeningeal thickening/enhancement Dr Mooney feels the meningeal enhancement is likely old, post-surgical change from his prior craniotomy He has had no features/signs/symptoms of infectious meningitis Dr Mooney recommended 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 Patient again with symptoms overnight on 02/21/23 Keppra likely not therapuetic at that time, will continue current dose. Patient can be discharged. Will recommend followup with Dr. Mooney's office in 2-3 weeks. If still symptomatic, may consider increasing dose and also possibly ordering an ambulatory EEG. Dr. Mooney will also consider an EMG for lower extremities. Loop recorder interrogation completed --> no events on loop that correlate with his vertigo attacks PT, OT evals appreciated - cleared for home Updated on the phone (2) Hyperlipidemia: Continue Crestor 40 mg p.o. daily Continue zetia (3) Diabetes: Patient is on metformin 1000 mg p.o. twice daily -- hold while here. Can resume at d/c Cont Lantus 5 units twice daily with novolog sliding scale Hba1c is 7.1% (4) Hypertension: controlled Continue losartan 75 mg p.o. daily Continue amlodipine 10 mg p.o. daily has LVH on echo today - due to long-standing HTN?? I do not have a prior echo - follows with Dr Kevin Walker in [place] - will need to f/u with him post-discharge echo placed on disc for patient to take home ideally patient is on beta adryan due to LVH (5) Elevated liver enzymes: limited outpatient records suggest fatty liver at minimum records also report he has had a liver biopsy - details uncertain 1 [facility] outpatient note mentions he has DUBOIS? AST/ALT have trended down; they are not in normal range, but have improved and are acceptable (6) H/O lumbosacral spine surgery: 07/13/2015 - L4-L5 surgery (per limited outpatient records); details uncertain repeat surgery - spring 2022 at [facility] (per daughter) details uncertain per daughter lumbar fusion was done? limited outpatient records reference epidural steroid injections for spine in 2021 that were not helpful patient reports b/l leg numbness - mainly in his thighs - along with b/l leg weakness L>R PT, OT evals appreciated; cleared for d/c home with family due to neuropathy and leg weakness checked B12 - he is deficient send B1 - this is pending place on vitamin B12 1000mcg daily x 6-12 months while awaiting B1 level - thiamine 200mg BID x 1 month consider outpatient EMG studies of legs - Dr Mooney's office can help with this (7) History of cervical spinal surgery: per limited outpatient [facility] records - cervical diskectomy - 08/2011 details uncertain otherwise conceivably c-spine disease could be contributing to leg weakness (8) RAFAEL (obstructive sleep apnea): on CPAP (9) Psoriatic arthritis: apparently was on methotrexate in past and Humira - no longer on Rx does not follow with rheum any longer uncertain if he has had psoriatic arthritis vs RA (10) Implantable loop recorder present: details uncertain about implantation date, etc interrogation completed today since start 2022 only 1 event --> 1/5/23 he had a 3 sec pause only; no other dysrhythmia or AV block (11) History of craniotomy: 11/2020 - [facility] 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 again details unknown patient is poor historian (14) B12 deficiency: level is <200 start B12 orally - 1000mcg daily x 6-12 months (15) LVH (left ventricular hypertrophy): severe on echo today mild asymmetry of septum also seen will need close f/u with Dr Kevin Walker in [place] for the LVH consider beta adrayn could consider cardiac MRI as outpatient (16) Arthritis of knee: b/l OA likely family was told he ultimately needs TKR no evidence of gouty arthritis of knees place on tylenol 1gm TID voltaren gel 4gm QID either knee (17) Abnormal EKG: EKGs here with NSR, RBBB, and inverted T waves anteriorly; he also has ST flattening in the limb leads I do not have prior EKGs to compare Thus, contacted the on-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 no recent ischemic symptoms previous cardiac cath about 10 years ago (date?) was normal Plan DVT proph - lovenox daily Total Time Total Time Spent Total Time Spent (In Minutes): 35 Discharge Plan Discharge Items Patient Disposition: Home - Self-Care Reason For Visit: ACUTE, SEVERE VERTIGO/NAUSEA/EMESIS Discharge Diagnosis: acute vertigo Condition on Discharge: Fair Activity: Resume your previous activity Non-emergency contact: Primary Care Provider Call non-emergency contact if: you have any medication questions Follow-up/Referrals: Florian Sinha MD [Surgeon] - Taylor Espinoza CRNP [Primary Care Provider] - Diet: Carb Consistent or DM2 Addtl Attending Provider Instructions: Recommend followup with Neurology Dr. Mooney's office for hospital followup in 2- 3 weeks Recommend followup with PCP in 1-2 weeks Pending Studies at Discharge: No Stand-Alone Forms: My [facility] [employer], Smoking Cessation Medications and DC Order Prescriptions: New levetiracetam [Keppra] 500 mg Tablet 500 mg PO BID Qty: 60 0RF thiamine HCl (vitamin B1) 100 mg Tablet 200 mg PO BID Qty: 30 0RF cyanocobalamin (vitamin B-12) 500 mcg Tablet 1,000 mcg PO QAM Qty: 30 0RF Continued losartan 50 mg tablet 50 mg PO QAM Rx Instructions: TOTAL DOSE 75 MG--TAKES WITH 25 MG TAB. ondansetron HCl 8 mg tablet 8 mg PO Q8H PRN (Reason: NAUSEA/VOMITING) sennosides-docusate sodium [Stool Softener-Stimulant Laxat] 8.6-50 mg tablet 2 tab PO HS meclizine 12.5 mg tablet 12.5 mg PO TID PRN (Reason: Dizziness) amlodipine 10 mg tablet 10 mg PO QAM losartan 25 mg tablet 25 mg PO QAM Rx Instructions: TOTAL DOSE 75 MG--TAKES WITH 50 MG TAB. folic acid 1 mg tablet 1 mg PO QAM metformin 500 mg tablet extended release 24 hr 1,000 mg PO BID ezetimibe 10 mg tablet 10 mg PO QAM cyclosporine 0.05 % dropperette 1 drp OPB BID rosuvastatin 40 mg tablet 40 mg PO DAILY duloxetine 60 mg capsule,delayed release(DR/EC) 60 mg PO DAILY Discharge Orders: Discharge Order (Routine); Ordered 02/23/23 Ordered By: Kevin Steve/Other Patient Handouts: Managing Type 2 Diabetes Admission Data Admit Date/Time: 02/21/23 18:46 Attending Provider: Kevin Berrios Admit Provider: Charisse Sanders Primary Care Provider: Olga,Taylor A. 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
--- NOTE | 2023-02-24 22:31 | Electrocardiogram Report ---
Test Reason : Blood Pressure : / mmHG Vent. Rate : 074 BPM Atrial Rate : 074 BPM P-R Int : 166 ms QRS Dur : 148 ms QT Int : 404 ms P-R-T Axes : 034 046 147 degrees QTc Int : 448 ms Normal sinus rhythm Right bundle branch block T wave abnormality, consider lateral ischemia Abnormal ECG When compared with ECG of 20-FEB-2023 13:51, No significant change was found Confirmed by Paul Busby ([id number]) on 02/24/2023 10:30:54 PM Referred By: REFERRED SELF Confirmed By:Paul Busby
[2023-02-25 05:07] LABS: Babesia microti DNA Not Detected (Not Detected)
== END 2023-02-23 18:41 | disposition home or self-care (01) | DRG 101 ==
LOC: ED 12:35 → 2W 12:35 → SUATTDRO 20:18 → 2W 21:40 → SUATTDRO 02-21 18:46

== ENCOUNTER 2023-11-19 06:29 | Observation (INO) ==
--- NOTE | 2023-10-16 13:09 | PAT Medication Instructions ---
Medication Instructions Date of Service October 16, 2023 Home Medications Medication Instructions Recorded cyanocobalamin (vitamin B-12) 1,000 mcg PO QAM #30 tabs 03/11/23 1,000 mcg tablet levetiracetam 750 mg tablet 750 mg PO BID #60 tabs 03/11/23 thiamine HCl (vitamin B1) 100 mg 200 mg (2 x 100 mg) PO BID #120 03/11/23 tablet tabs amlodipine 10 mg tablet 5 mg PO QAM cyclosporine 0.05 % eye drops in a dropperette 1 drp OPB BID duloxetine 60 mg capsule,delayed release 60 mg PO QAM ezetimibe 10 mg tablet 10 mg PO QAM folic acid 1 mg tablet 1 mg PO QAM metformin 500 mg tablet,extended release 24 hr 1,000 mg PO BID rosuvastatin 40 mg tablet 40 mg PO QPM cyanocobalamin (vitamin B-12) 1,000 mcg tablet 1,000 mcg PO QAM hydrocortisone 2.5 % rectal cream with applicator 1 ea MN UD PRN levetiracetam 750 mg tablet 750 mg PO BID metronidazole 0.75 % topical cream (MetroCream) 1 applic topical UD PRN nitroglycerin 0.4 mg sublingual tablet 0.4 mg sublingual Q5M PRN olopatadine 0.2 % eye drops 1 drp OPB DAILY polyethylene glycol 3350 17 gram/dose oral powder 17 g PO 3XWK PRN thiamine HCl (vitamin B1) 100 mg tablet 200 mg (2 x 100 mg) PO BID losartan 100 mg tablet 100 mg PO QAM meclizine 25 mg tablet 25 mg PO UD PRN ondansetron HCl 8 mg tablet 8 mg PO UD PRN Continue as directed olopatadine 0.2 % eye drops 1 drp OPB DAILY ondansetron HCl 8 mg tablet 8 mg PO UD PRN(if needed) meclizine 25 mg tablet 25 mg PO UD PRN(if needed) nitroglycerin 0.4 mg sublingual tablet 0.4 mg sublingual Q5M PRN(if needed) STOP taking 24 hours before surgery hydrocortisone 2.5 % rectal cream with applicator 1 ea MN UD PRN metronidazole 0.75 % topical cream (MetroCream) 1 applic topical UD PRN DO NOT take the morning of surgery folic acid 1 mg tablet 1 mg PO QAM metformin 500 mg tablet,extended release 24 hr 1,000 mg PO BID cyanocobalamin (vitamin B-12) 1,000 mcg tablet 1,000 mcg PO QAM polyethylene glycol 3350 17 gram/dose oral powder 17 g PO 3XWK PRN thiamine HCl (vitamin B1) 100 mg tablet 200 mg (2 x 100 mg) PO BID losartan 100 mg tablet 100 mg PO QAM Take morning of surgery With a small sip of water, OTHERWISE NOTHING TO EAT OR DRINK AFTER MIDNIGHT: amlodipine 10 mg tablet 5 mg PO QAM cyclosporine 0.05 % eye drops in a dropperette 1 drp OPB BID duloxetine 60 mg capsule,delayed release 60 mg PO QAM ezetimibe 10 mg tablet 10 mg PO QAM levetiracetam 750 mg tablet 750 mg PO BID Take evening before surgery cyclosporine 0.05 % eye drops in a dropperette 1 drp OPB BID metformin 500 mg tablet,extended release 24 hr 1,000 mg PO BID rosuvastatin 40 mg tablet 40 mg PO QPM levetiracetam 750 mg tablet 750 mg PO BID thiamine HCl (vitamin B1) 100 mg tablet 200 mg (2 x 100 mg) PO BID Other Notes If you have any questions please call us at [phone] or [phone] or [phone] or [phone]
--- NOTE | 2023-10-20 12:46 | Anesthesiology Consultation ---
Date of Service October 20, 2023 Assessment & Plan (1) Encounter for pre-operative examination: Plan - check BSG am DOS. - awaiting 10/23/23 cardiology pre-operative evaluation and clearance with Dr. Walker's office. Optimization form to be faxed to cardiology office. Patient and his also report upcoming PCP pre-operative evaluation with Dr. Taylor Espinoza-will attempt to obtain note. - abnormal EKG: Patient denies any chest discomfort, shortness of breath, change in chronic dyspnea, diaphoresis, dizziness/lightheadedness or palpitations. Case including recent illness and EKG were reviewed directly by Dr. Teixeira and Dr. Veronica. Dr. Teixeira personally reviewed patient's previous EKGs and advised that nothing is needed today, but that patient should have stress test advised by cardiology and he will need a cardiology clearance. Per patient and his , cardiology clearance is already scheduled in addition to medical clearance. Patient and his were instructed to call 911 if he develops chest discomfort, shortness of breath, change in chronic dyspnea, diaphoresis, dizziness/lightheadedness, palpitations or other concerning symptoms. They verbalized understanding and agreement. Patient inquired if he should avoid certain cold medications, states is only using OTC products approved by his PCP. I advised he can follow PCP advise and for confirmation they can call his cardiology office. They verbalized understanding and agreement, denied additional questions or concerns. Surgeon's office made aware cardiology clearance also needed from anesthesia standpoint. Patient's states that patient preferred Dr. Walker's practice so is returning to that office for upcoming cardiology clearance. Given discrepancy in Dr. Walker and Dr. Calderon's assessments last year, I notified Dr. Teixeira of this and he advised determination on if any additional testing is needed will be left to Dr. Walker's office. - cardiology 07/10/23 Dr. Calderon with Cardiology: "...I understand that although he got through this recent orthopedic surgery without issues, he has not had any kind of a recent cardiac evaluation for ischemia in 8 years and his catheterization as far as know may have been 20 years ago...do not feel comfortable clearing him for a second hip surgery...recommended that we do a Lexiscan..." - cardiology 05/27/[address] Walker's office: "...upcoming left hip replacement...moderate risk for the procedure. No further optimization is needed..." Chart Review Chart Review: Pending: Refer to Additional Notes / Consult section and Patient seen in Pre Admission Testing Teaching & Discussion Pre-Anesthesia Teaching/Discussion Notes: Instructed NPO after midnight before surgery, except medications with 15 cc of water. Medication instructions provided according to the PAT guidelines. History Surgery Operation Date: 11/19/23 09:15 Proposed Procedures p Right Total Hip Replacement - Anterior Approach - Americo Pink MD Height/Weight Height: 5 ft 2 in Weight: 86 kg Allergies Allergy/AdvReac Type Severity Reaction Status Date / Time nystatin Allergy Unknown passed out Verified 10/16/23 09:27 - happended 40 + yr ago. Medications Home Medications Medication Instructions Recorded Confirmed Last Taken amlodipine 10 mg tablet 5 mg PO QAM 02/20/23 10/16/23 02/20/23 cyclosporine 0.05 % eye drops in a 1 drp OPB BID 02/20/23 10/16/23 02/20/23 08:00 dropperette duloxetine 60 mg capsule,delayed 60 mg PO QAM 02/20/23 10/16/23 02/20/23 release ezetimibe 10 mg tablet 10 mg PO QAM 02/20/23 10/16/23 02/20/23 folic acid 1 mg tablet 1 mg PO QAM 02/20/23 10/16/23 02/20/23 metformin 500 mg tablet,extended 1,000 mg PO BID 02/20/23 10/16/23 02/20/23 08:00 release 24 hr rosuvastatin 40 mg tablet 40 mg PO QPM 02/20/23 10/16/23 02/20/23 blood sugar diagnostic (Blood 03/11/23 03/11/23 Unknown Glucose Test strips) blood-glucose meter 03/11/23 03/11/23 Unknown cyanocobalamin (vitamin B-12) 1,000 mcg PO QAM #30 tabs 03/11/23 10/16/23 Unknown 1,000 mcg tablet hydrocortisone 2.5 % rectal cream 1 ea [place] UD PRN Hemorrhoids 03/11/23 10/16/23 Unknown with applicator lancets 03/11/23 03/11/23 Unknown levetiracetam 750 mg tablet 750 mg PO BID #60 tabs 03/11/23 10/16/23 Unknown metronidazole 0.75 % topical cream 1 applic topical UD PRN eczema 03/11/23 10/16/23 Unknown (MetroCream) nitroglycerin 0.4 mg sublingual 0.4 mg sublingual Q5M PRN Chest 03/11/23 10/16/23 Unknown tablet Pain olopatadine 0.2 % eye drops 1 drp OPB DAILY 03/11/23 10/16/23 Unknown polyethylene glycol 3350 17 17 g PO 3XWK PRN Constipation 03/11/23 10/16/23 Unknown gram/dose oral powder thiamine HCl (vitamin B1) 100 mg 200 mg (2 x 100 mg) PO BID #120 03/11/23 10/16/23 Unknown tablet tabs losartan 100 mg tablet 100 mg PO QAM 10/16/23 10/16/23 Unknown meclizine 25 mg tablet 25 mg PO UD PRN Dizziness 10/16/23 10/16/23 Unknown ondansetron HCl 8 mg tablet 8 mg PO UD PRN NAUSEA/VOMITING 10/16/23 10/16/23 Unknown Past Medical History Medical History (Updated 10/21/23 @ 11:19 by Yakelin Wood PA-C) Arthritis of both knees Depression Diabetes NIDDM Enlarged prostate hx/sx intervention. Fatty liver History of colon polyps History of hemorrhoids controlled, stable per pt History of seizure currently follows pcp/last seizure > 1 yr ago. Hyperlipidemia Hypertension controlled, stable per pt Implantable loop recorder present RAFAEL (obstructive sleep apnea) intermittent use of CPAP SVT (supraventricular tachycardia) Vertigo Patient denies h/o stroke, heart attack, heart failure, blood clots/DVTs or blood transfusions. Exercise / Class Metabolic Activity III < 4 Walking/Shop/Light housework (ambulates with cane, shortness of breath with usual activities ongoing several yrs-denies change or worsening; denies chest discomfort) Past Family History Family History Other Family history non-contributory Past Surgical History Surgical History (Updated 10/20/23 @ 12:55 by Yakelin M. Onink, PA-C) History of back surgery History of brain surgery x2 - 2019 (hx brain bleed) History of cardiac cath multiple/[place]. Most recent 10 yr ago. No hx findings/no hx stent(s). History of carpal tunnel release of both wrists History of colonoscopy History of left hip replacement 05/2023. History of neck surgery full rom. History of prostatectomy 5 yr ago. History of shoulder surgery left Implantable loop recorder present 2019 Past Anesthesia History No Hx of Anesthesia Complications and No Family Hx of Anesthesia Complications History of PONV No Hx of PONV and No Hx of Motion Sickness Social History Smoking Status: Never smoker tobacco type: smokeless tobacco Do You Dip or Chew Tobacco: Yes (1 can every 2 days/advised npo) Hx Alcohol Use: No (hx 20 +yr ago social.) Hx Substance Use: No substance use type: does not use Review of Systems - onset of nasal congestion, myalgias, fatigue, cough productive of green sputum, pharyngitis, hoarse voice 3 days ago; denies fever, chills, chest discomfort, shortness of breath, wheezing, rash, nausea or vomiting. COVID test completed during visit was negative. He was advised to remain in communication with his PCP regarding symptoms. Physical Exam Vital Signs Vitals BP 115/73 P 75 TEMP 98.3 SP02 95% on RA RESP 18 Physical Patient resting comfortably in chair in no acute distress, alert and oriented, non-diaphoretic, responding appropriately throughout visit Full cervical extension range of motion without pain TMD < 3 finger breadths Mallampati Score 3 Dentition: several caps/crowns, denies chipped or loose teeth, implants or bridges Lungs: normal respiratory effort. Good air movement, clear throughout to auscultation, no adventitious breath sounds Cardiac: regular rate and rhythm, no murmurs, gallops or rubs noted Carotid arteries: negative bruit bilat Lab Results Anesthesia Preop Results Results Anesthesia Widget: WBC 10.84 K/ul (4.8-10.8) H 10/20/23 Hgb 13.8 g/dl (14.0-18.0) L 10/20/23 Hct 42.6 % (42.0-52.0) 10/20/23 Plt 246 K/uL (130-400) 10/20/23 Na 139 mmol/L (136-145) 10/20/23 K 4.3 mmol/L (3.5-5.1) 10/20/23 Cl 102 mmol/L (98-107) 10/20/23 CO2 33 mmol/L (21-32) H 10/20/23 BUN 12 mg/dl (6-23) 10/20/23 Creat 0.81 mg/dl (0.6-1.4) 10/20/23 Glucose Level 120 mg/dl (70-99(Fasting)) H 10/20/23 PT 10.9 Seconds (9.0-12.0) 10/20/23 PTT 27 Seconds (21-31) 10/20/23 INR 1.0 (0.9-1.1) 10/20/23 HA1c 7.1 % (4.5-5.6) H 10/20/23 Urine Color Yellow 10/20/23 Urine Appearance Clear (Clear) 10/20/23 Urine pH 5.5 (4.5-7.5) 10/20/23 Urine Specific [place] 1.021 (1.000-1.030) 10/20/23 Urine Protein Negative (Negative) 10/20/23 Urine Glucose (UA) Negative (Negative) 10/20/23 Urine Ketones Negative (Negative) 10/20/23 Urine Blood Negative (Negative) 10/20/23 Urine Nitrite Negative (Negative) 10/20/23 Urine Bilirubin Negative (Negative) 10/20/23 Urine Urobilinogen Negative (Negative) 10/20/23 Urine Leukocyte Esterase Trace (Negative) H 10/20/23 Urine WBC (Auto) 1-5 /hpf (0-5) 10/20/23 Urine RBC (Auto) 0-4 /hpf (0-4) 10/20/23 Urine Hyaline Casts (Auto) 1-5 /lpf (0-5) 10/20/23 Urine Epithelial Cells (Auto) 5-10 /lpf (0-5) H 10/20/23 Urine Bacteria (Auto) Negative (Negative) 10/20/23 SARS-CoV-2 RNA (RT-PCR) Negative (Negative) 10/20/23 Blood Type A Negative 10/20/23 Antibody Screen NEGATIVE 10/20/23 Testing Electrocardiogram Date: 10/20/23 NSR, rate 73 bpm RBBB T wave abnormality, consider inferolateral ischemia No significant change vs 02/22/23 Chest X-Ray Date: 05/22/23 Stable chest x-ray with no evidence of active cardiopulmonary disease at this time. Echocardiogram Date: 02/22/23 EF > 70% Severe cLVH No LV regional wall motion abnormalities Possible asymmetric, more severe hypertrophy of the apex No significant valvular abnormalities Type 1 diastolic dysfunction Other Testing EEG 02/23/23 In summary, this EEG was normal during wakefulness and sleep. No focal abnormalities, potentially epileptogenic discharges, or abnormal slow activity was seen. Implanted loop recorder report 02/22/23 Pause 08/28/22 duration 00:00:03 Head and neck CTA 02/21/23 1. No significant stenosis, occlusion, or aneurysm within the [place]. 2. No significant stenosis, occlusion, or dissection identified within the carotid or vertebral arteries. 3. No acute infarct or intracranial hemorrhage. 4. Chronic and postoperative changes as described above.
--- NOTE | 2023-11-18 07:53 | History & Physical Report ---
Date of Service November 18, 2023 Assessment & Plan (1) Degenerative joint disease of right hip: Plan: Right total hip replacement direct anterior approach with overnight stay and then home health using [facility] History of Present Illness Chief Complaint: Right hip pain Primary Care Provider: WARREN Garduno Patient is a chronically ill 83-year-old male who presents with a history of severe osteoarthritis of the lower extremities which involves both the hip and the knees. This patient has basically been wheelchair-bound but is improved status post left total hip replacement 1023. He can now walk with a walker albeit his first recovery was slow. He now presents with severe right hip pain associated with decreased range of motion and radiographic evidence of severe arthritis of the right hip and is admitted now for right hip replacement surgery. Patient does have a history of type 2 diabetes with an A1c of 7.1. Allergies Allergy/AdvReac Type Severity Reaction Status Date / Time nystatin Allergy Unknown passed out Verified 10/16/23 09:27 - happended 40 + yr ago. Home Medications Medication Instructions Recorded Confirmed Type amlodipine 10 mg tablet 5 mg PO QAM 02/20/23 10/16/23 History cyclosporine 0.05 % eye drops in a 1 drp OPB BID 02/20/23 10/16/23 History dropperette duloxetine 60 mg capsule,delayed 60 mg PO QAM 02/20/23 10/16/23 History release ezetimibe 10 mg tablet 10 mg PO QAM 02/20/23 10/16/23 History folic acid 1 mg tablet 1 mg PO QAM 02/20/23 10/16/23 History metformin 500 mg tablet,extended 1,000 mg PO BID 02/20/23 10/16/23 History release 24 hr rosuvastatin 40 mg tablet 40 mg PO QPM 02/20/23 10/16/23 History blood sugar diagnostic (Blood 03/11/23 03/11/23 History Glucose Test strips) blood-glucose meter 03/11/23 03/11/23 History cyanocobalamin (vitamin B-12) 1,000 mcg PO QAM #30 tabs 03/11/23 10/16/23 Rx 1,000 mcg tablet hydrocortisone 2.5 % rectal cream 1 ea [place] UD PRN Hemorrhoids 03/11/23 10/16/23 History with applicator lancets 03/11/23 03/11/23 History levetiracetam 750 mg tablet 750 mg PO BID #60 tabs 03/11/23 10/16/23 Rx metronidazole 0.75 % topical cream 1 applic topical UD PRN eczema 03/11/23 10/16/23 History (MetroCream) nitroglycerin 0.4 mg sublingual 0.4 mg sublingual Q5M PRN Chest 03/11/23 10/16/23 History tablet Pain olopatadine 0.2 % eye drops 1 drp OPB DAILY 03/11/23 10/16/23 History polyethylene glycol 3350 17 17 g PO 3XWK PRN Constipation 03/11/23 10/16/23 History gram/dose oral powder thiamine HCl (vitamin B1) 100 mg 200 mg (2 x 100 mg) PO BID #120 03/11/23 10/16/23 Rx tablet tabs losartan 100 mg tablet 100 mg PO QAM 10/16/23 10/16/23 History meclizine 25 mg tablet 25 mg PO UD PRN Dizziness 10/16/23 10/16/23 History ondansetron HCl 8 mg tablet 8 mg PO UD PRN NAUSEA/VOMITING 10/16/23 10/16/23 History Past Med/Surg History Medical History SVT (supraventricular tachycardia) Implantable loop recorder present Arthritis of both knees History of colon polyps Enlarged prostate hx/sx intervention. History of hemorrhoids controlled, stable per pt Depression History of seizure currently follows pcp/last seizure > 1 yr ago. RAFAEL (obstructive sleep apnea) intermittent use of CPAP Fatty liver Hyperlipidemia Diabetes NIDDM Hypertension controlled, stable per pt Vertigo Surgical History History of left hip replacement 05/2023. History of cardiac cath multiple/[place]. Most recent 10 yr ago. No hx findings/no hx stent(s). Implantable loop recorder present 2019 History of carpal tunnel release of both wrists History of neck surgery full rom. History of brain surgery x2 - 2019 (hx brain bleed) History of colonoscopy History of prostatectomy 5 yr ago. History of shoulder surgery left History of back surgery Family History Other Family history non-contributory Social History Smoking Status: Never smoker Tobacco Type: Smokeless Tobacco (Dip or Chew) Second Hand Exposure: No; Do You Dip or Chew Tobacco: Yes (1 can every 2 days/advised npo); Hx Alcohol Use: No (hx 20 +yr ago social.) Hx Substance Use: No Preferred Language: [place] Communication Ability: Effective Communication Ability Comment: does phone interview per pt preference. Warehouse Shipper Required: No Beliefs That Will Affect Care: None Current Living Situation: Spouse Other Information That Helps Us Care for You: No Feels Safe at Home: Yes Assistive Devices: Glasses and Hearing Aid - Bilateral Review of Systems Review of Systems: Hip pain Physical Exam Physical Exam: Weight 86 kg BMI 35 General: Small statured but obese male who appears his stated age HEENT: NCAT, EOMI, PERRLA. Neck: Negative bruits well-healed scar from previous loop recorder. Heart: Regular rate and rhythm no murmurs Lungs: Breath sounds clear and present in all [place] Abdomen: Obese soft nontender bowel sounds are positive Extremities: Right hip shows equal leg lengths to the left passive range of motion is 10 to 80 degrees flexion -20 degrees internal rotation all which reproduces groin pain. The left hip shows a well-healed scar consistent with previous surgery. Neurological and vascular: Intact Results & Data Results & Data Vital Signs (Past 12 Hours) Blood pressure 132/72 Pulse 79
[~2023-11-19 06:29] MED LIST: ROPIVACAINE 0.5% 5 MG/ML 30 ML VIAL ONE
[2023-11-19] MEDS ORDERED: PROPOFOL IV EMULSION 10 MG/ML 20 ML VIAL IV ONE (07:23)
[2023-11-19] MEDS ORDERED: MIDAZOLAM HCL 1 MG/ML 2ML VIAL ONE (07:24)
[2023-11-19] MEDS: ACETAMINOPHEN 500 MG TAB PO SCH (07:59)
[2023-11-19] MEDS: CeleBREX 200 MG CAP PO SCH ×2 (08:00→20:35)
[2023-11-19] MEDS: METOCLOPRAMIDE HCL 10 MG TABLET PO SCH (08:00)
[2023-11-19] MEDS: oxyCODONE HCL 10 MG TABCR (OxyCONTIN) PO SCH (08:00)
[2023-11-19] MEDS: LR 500ML BOLUS, THEN 15ML/HR IV SCH (08:00)
[2023-11-19] MEDS: FAMOTIDINE 20 MG TAB PO SCH (08:00)
[2023-11-19] MEDS: GABAPENTIN 300 MG CAP PO SCH (08:00)
[2023-11-19] MEDS: LR 60ML/HR IV SCH (08:00)
--- NOTE | 2023-11-19 08:48 | History & Physical Bridge Note ---
Date of Service November 19, 2023 History & Physical Bridge Note I have examined the patient, reviewed the History & Physical and in the interval since the performance of the History & Physical I have noted the following changes of clinical significance: no changes noted
[2023-11-19] MEDS ORDERED: ePHEDrine sulfate 50 MG/ML AMP IV PRN (10:02)
[2023-11-19] MEDS ORDERED: ONDANSETRON INJ 2 MG/ML 2 ML VIAL IV PRN ×2 (10:02→13:15)
[2023-11-19] MEDS ORDERED: KETOROLAC 30 MG/ML VIAL IV PRN (10:02)
[2023-11-19] MEDS ORDERED: HYDROmorphone INJ 1 MG/ML SYRINGE IV PRN (10:02)
[2023-11-19] MEDS ORDERED: ATROPINE SULFATE 0.1 MG/ML 10ML SYR IV PRN (10:02)
[2023-11-19] MEDS: TRANEXAMIC ACID 1,000 MG **IV Pre-op IV SCH (10:06)
[2023-11-19] MEDS: ceFAZolin 2000MG 2,000 MG/15 ML SYR IV SCH ×2 (10:33→18:09)
[2023-11-19] MEDS: ROPIV 0.5% 246mg, Ketorolac 30mg, EPINEPHrine 0.5mg in NSS INFIL SCH (11:05)
[2023-11-19] MEDS ORDERED: ePHEDrine sulfate 50 MG/5 ML SYR ONE (11:06)
[2023-11-19] MEDS ORDERED: PHENYLEPHRINE 100MCG/ML 10ML SYR IV ONE (11:06)
[2023-11-19] MEDS ORDERED: PHENYLEPHRINE HCL 10 MG/ML VIAL ONE (11:41)
[2023-11-19] MEDS ORDERED: KETOROLAC 30 MG/ML VIAL ONE (11:48)
--- NOTE | 2023-11-19 12:07 | Post Operative Brief Note ---
Immediate Post Op Note v1 Date of Surgery November 19, 2023 Pre & Post Diagnosis Operation Date: 11/19/23 09:15 Pre-Op Diagnosis: Right Hip Osteoarthritis Post-Op Diagnosis: Right Hip Osteoarthritis I identified the patient and participated in the time-out.: Yes Procedure Operation Date: 11/19/23 09:15 Actual Procedures p Right Total Hip Replacement - Anterior Approach(Right) - Americo Pink MD Surgeon Americo Pink MD Nut Processing Supervisor None Estimated Blood Loss 100 Findings Consistent with Post-Op Diagnosis
--- NOTE | 2023-11-19 13:08 | Anesthesiology Progress Note ---
Date of Service November 19, 2023 Anesthesia Post Procedure Vital Signs Vital Signs: Temp Pulse Resp BP Pulse Ox O2 Del Method O2 Flow Rate 11/19/23 12:50 36.2 C L 71 14 110/61 98 Nasal Cannula 2 11/19/23 12:40 73 15 124/80 100 Nasal Cannula 4 11/19/23 12:30 74 15 124/90 100 Nasal Cannula 4 11/19/23 12:20 72 16 122/59 L 100 Nasal Cannula 4 11/19/23 12:14 36.0 C L 75 16 117/56 L 100 Nasal Cannula 4 11/19/23 07:38 36.7 C 70 18 121/67 92 Room Air Transfer of Care Handoff Completed per policy Notes Mental Status: alert / awake / arousable Patient Amnestic to Procedure: Yes Nausea / Vomiting: adequately controlled Pain: adequately controlled Airway Patency, RR, SpO2: stable & adequate BP & HR: stable & adequate Hydration State: stable & adequate Neuraxial Anesthesia: was administered and sensory block is resolving Anesthetic Complications: no major complications apparent
[2023-11-19] MEDS ORDERED: MAGNESIUM HYDROXIDE SUSP 30 ML UDC PO PRN (13:15)
[2023-11-19] MEDS ORDERED: NON-FORMULARY MEDICATION (Ondansetron Hcl 8 mg tablet) PO PRN (13:15)
[2023-11-19] MEDS ORDERED: NITROGLYCERIN SL 0.4 MG/TAB TAB SL PRN (13:15)
[2023-11-19] MEDS ORDERED: MECLIZINE HCL 25 MG TAB PO PRN (13:15)
[2023-11-19] MEDS ORDERED: METOCLOPRAMIDE HCL INJ 5 MG/ML 2 ML VIAL IV PRN (13:15)
[2023-11-19] MEDS ORDERED: bisacodyL 10 MG SUPP PR PRN (13:15)
[2023-11-19] MEDS ORDERED: POLYETHYLENE (MIRALAX) 17 GM PACK PO PRN (13:15)
[2023-11-19] MEDS ORDERED: PHARMACY GLYCEMIC MGMT CONSULT PRN (13:15)
[2023-11-19] MEDS ORDERED: NALOXONE HCL 0.4 MG/1 ML VIAL/CARP IV PRN (13:15)
--- NOTE | 2023-11-19 14:11 | Fluoroscopy Report ---
FL hip RT 1V CLINICAL HISTORY: RIGHT ANTERIOR HIP COMPARISON STUDY: None. FLUOROSCOPY TIME: 12 seconds. FLUOROSCOPY IMAGES: 4 Ka,r: 2.3 mGy FINDINGS: Fluoroscopic assistance provided for a right total hip arthroplasty. The hardware appears i ntact. No fracture or dislocation. Evidence for a prior left total hip arthroplasty. IMPRESSION: Fluoroscopic assistance as above. ACT 112: Negative or not required by law. Electronically signed by: Tello Woods M.D. 11/19/2023 2:10 PM
--- OUTSIDE RECORDS SUMMARY | 2023-11-19 14:13 | External Medical Summary | Summary of Care ---
Author Name Unknown Organization [facility] Address [address] [place] [address] Phone [phone] Care Team Providers Care Furnace Attendant Name Role Phone Taylor Espinoza WARREN Primary Care Provider + Reason for Visit * Reason Onset Date Comments Diabetes Management 11/13/2023 TRIAGE 11/13/2023 Non-CE DM Encounter Details Date Type Department Care Team (Late st Contact Info) Description 11/13/2023 Telephone Pharmacy Call Center [phone] [place] [id number] [facility] [phone] [place] [phone] Diabetes Management; TRIAGE (Non-CE DM) Allergies Active Allergy Reactions Criticality Noted Date Comments Alfuzosin High 12/13/2015 Other Reaction(s): Shortness of breath Niacin Low 07/21/2012 Other Reaction(s): Itching, Other (See Comments) Passes out Other reaction(s): flushing, hot, fainted Other reaction(s): Other (document details in comments) Passes out Passes out Niacin Er Itching,Other (Bora edward comment) 07/21/2012 Passes out Tamsulosin High 11/02/2015 Other Reaction(s): Shortness of breath documented as of this encounter (statuses as of 11/16/2023) Medications Medication Sig Dispensed Refills Start Date End Date Status LOSARTAN POTASSIUM 50 MG PO TABS once dialy 0 Active METHOTREXATE 2.5 MG PO TABS 4 tabs once weekly 0 Active FOLIC ACID 800 MCG PO TABS daily 0 Active TACLONEX 0.005-0.064 % EX OINT once daily as needed 0 Acti ve VITAMIN B-12 1000 MCG PO TABS once daily 0 Active Acetaminophen Extra Strength 500 MG Oral Tablet TAKE TWO TABLETS BY MOUTH EVERY 8 HOURS 0 Active amLODIPine Besylate 5 MG Oral Tablet (Norvasc) Take 1 Tablet by mouth in the morning. 0 06/22/2023 Active Aspirin Low Dose 81 MG Oral Tablet Delayed Release Take 1 Tablet by mouth in the morning and 1 Tablet before bedtime. 0 06/22/2023 Active DULoxetine HCl 60 MG Oral Capsule Delayed Release Particles (Cymbalta) Take 1 Capsule by mouth in the morning. 0 06/02/2023 Active Ezetimibe 10 MG Oral Tablet (Zetia) Take 1 Tablet by mouth in the morning. 0 05/07/2023 Active Famotidine 20 MG Oral Tablet (Pepcid) Take 1 Tablet by mouth in the morning and 1 Tablet before bedtime. 0 05/12/2023 Active Gabapentin 300 MG Oral Capsule (Neurontin) Take 1 Capsule by mouth in the morning and 1 Capsule at noon and 1 Capsule before bedtime. 0 08/03/2023 Active Gentamicin Sulfate 0.1 % External Ointment APPLY A SMALL AMOUNT TO AFFECTED AREA TWO TIMES A DAY WITH A DRY DRESSING 0 07/08/2023 Active OneTouch Ultra In Vitro Strip USE INSTRUCTED TO TEST ONCE DAILY 0 05/16/2023 Active OneTouch Delica Plus [id number] USE TO MONITOR BLOOD SUGARS ONCE DAILY 0 05/13/2023 Active hydroCHLOROthiazide 12.5 MG Oral Capsule (Hydrodiuril) 0 Active levETIRAcetam 750 MG Oral Tablet Take 1 Tablet by mouth in the morning and 1 Tablet before bedtime. 0 08/03/2023 Active metFORMIN HCl ER 500 MG Oral Tablet Extended Release 24 Hour (Glucophage XR) TAKE TWO TABLETS BY MOUTH TWICE A DAY 0 06/02/2023 Active Mupirocin 2 % External Ointment (Bactroban) APPLY A SMALL AMOUNT TO AFFECTED AREA THREE TIMES A DAY FOR 10 DAYS 0 07/06/2023 Active Rosuvastatin Calcium 40 MG Oral Tablet (Crestor) Take 1 Tablet by mouth in the morning. 0 06/06/2023 Active documented as of this encounter (statuses as of 11/16/2023) Active Problems Problem Noted Date Diagnosed Date Dry eyes, bilateral 08/07/2023 DDD (degenerative disc disease), lumbar 08/07/20 23 Primary osteoarthritis of both knees 08/07/2023 Primary osteoarthritis of one hip, right 023 History of left hip replacement 08/07/2023 Dyslipidemia 12/10/2020 SDH (subdural hematoma) 12/10/2020 Type 2 diabetes mellitus 12/10/2020 DUBOIS (nonalcoholic steatohepatitis) 09/17/2020 Obstructive sleep apnea 10/11/2014 HTN (hypertension) 06/20/2014 Hypercholesterolemia 06/20/2014 documented as of this encounter (statuses as of 11/16/2023) Immunizations Name Administration Dates Next Due Season Influenza, Quad, PF, Adjuvanted, 65+ Yrs, IM (FLUAD) 06/07/2023 documented as of this encounter Social History Tobacco Use Types Packs/Day Years Used Date Smoking Tobacco: Never Smokeless Tobacco: Current Snuff Alcohol Use Standard Drinks/Week Comments Not Currently 0 (1 standard drink = 0.6 oz pur e alcohol) Hunger Vital Sign Answer Date Recorded Within the past 12 months, y ou worried that your food would run out before you got the money to buy more. Never true 06/25/20 23 Within the past 12 months, t he food you bought just didn't last and you didn't have money to get more. Never true 06/25/2023 Sex and Gender Information Value Date Recorded Sex Assigned at Not on file Gender Identity Not on file Sexual Orientation Not on file Job Start Date Occupation Industry Not on file Not on file Not on file documented as of this encounter Miscellaneous Notes * Telephone Encounter - Rock Castro, [facility] - 11/13/2023 5:23 PM EDT [facility] Non-Clinical [place] Diabetes Initiative THIS NOTE SERVES FOR TRIAGING PURPOSES ONLY AND IS NOT A PATIENT CONTACT. PATIENT MAY BE CONTACTED FOLLOWING MY ASSESSMENT. Patient was identified to be a candidate for the Non-CE telephonic program based on the following criteria: Pharmacy AND/OR Medical High Cost / No A1c result / PDC >=80% Patient managed by [facility] provider? No; Pertinent Diabetes Info in Care Everywhere No Last A1C: 7.1 (Result Date: 10/20/2023) Diabetes Diagnosis: Type 2 After chart review the following opportunities were identified: Mail Order Invite ( Call and invite) Action to be taken by maintenance technician 2nd shift: Please contact and warm transfer to [facility] if patient is agreeable Needs Language Line: No Medication Claims Data (To verify during call): Med: METFORMIN HYDROCHLORIDE E 500 MG Fill date: 08/19/2023 Day Supply: 90 Quantity: 360 [address] Casrto [facility] Clinical Pharmacist 11/13/2023, 5:23 PM documented in this encounter Plan of Treatment Health Maintenance Due Date Last Done Comments COVID-19 Vaccine (#1) 1945 HbA1c 1948 Depression Screening 1954 Albumin/Creatinine Ratio 1960 Diabetic Foot Exam 1960 DTaP,Tdap,and Td Vaccines (1 - Tdap) 1961 GFR 10/12/2021 10/12/2020 Diabetic Eye Exam 06/04/2024 06/04/2023, , 05/07/2023, Additional history exists Pneumococcal Vaccine: 65+ Years Completed 10/11/2014, 07/09/2010 Zoster Vaccines Completed 02/08/2020, 11/14/2019 Influenza Vaccine (FLU shot) Completed 06/07/2023 GARDASIL-HPV IMMUNIZATION SERIES Aged Out No longer eligible based on patient's age to complete this topic Hepatitis B Aged Out No longer eligi ble based on patient's age to complete this topic MENINGOCOCCAL (MENACTRA/MENVEO) Aged Out No longer eligible based on patient's age to complete this topic documented as of this encounter Medical Devices Not on filedocumented as of this encounter Care Teams Furnace Attendant Relationship Specialty Start Date End Date Taylor Espinoza CRNP [phone] [facility] [address] PCP - General Nurse Practitioner 07/30/23 documented as of this encounter
--- OUTSIDE RECORDS SUMMARY | 2023-11-19 14:13 | External Medical Summary | Summary of Care ---
Author Name Unknown Organization [facility] Address [address] [facility] [place] [address] Phone [phone] Care Team Providers Care Concreter Name Role Phone Taylor Espinoza WARREN Primary Care Provider + Reason for Visit * Reason Onset Date Comments Diabetes Management 11/13/2023 TRIAGE 11/13/2023 Non-CE DM Encounter Details Date Type Department Care Team (Late st Contact Info) Description 11/13/2023 Telephone Pharmacy Call Center [phone] [place] [phone] [facility] [phone] [place] [phone] Diabetes Management; TRIAGE (Non-CE DM) Allergies Active [...] as of this encounter (statuses as of 11/13/2023) Medications Medication Sig Dispensed Refills Start Date [...] DAILY 0 05/16/2023 Active OneTouch Delica Plus [id number] USE TO MONITOR BLOOD SUGARS ONCE DAILY [...] as of this encounter (statuses as of 11/13/2023) Active Problems Problem Noted Date Diagnosed Date Dry eyes, bilateral 08/07/2023 DDD (degenerative disc disease), lumbar 08/07/20 Primary osteoarthritis of both knees 08/07/2023 Primary osteoarthritis of one hip, right 023 History of left hip replacement 08/07/2023 Dyslipidemia 12/10/2020 SDH (subdural hematoma) 12/10/2020 Type 2 diabetes mellitus 12/10/2020 DUBOIS (nonalcoholic steatohepatitis) 09/17/2020 Obstructive sleep apnea 10/11/2014 HTN (hypertension) 06/20/2014 Hypercholesterolemia 06/20/2014 documented as of this encounter (statuses as of 11/13/2023) Immunizations Name Administration Dates Next Due Season [...] Notes * Telephone Encounter - Rock Castro, [facility] - 11/13/2023 5:23 PM EDT [facility] Non-Clinical [place] Diabetes Initiative THIS NOTE SERVES FOR TRIAGING PURPOSES ONLY AND IS NOT A PATIENT CONTACT. PATIENT MAY BE CONTACTED FOLLOWING MY ASSESSMENT. Patient was identified to be a candidate for the Non-CE telephonic program based on the following criteria: Pharmacy AND/OR Medical High Cost / No A1c result / PDC >=80% Patient managed by [facility] provider? No; Pertinent Diabetes Info in Care Everywhere No Last A1C: 7.1 (Result Date: 10/20/2023) Diabetes Diagnosis: Type 2 After chart review the following opportunities were identified: Mail Order Invite ( Call and invite) Action to be taken by digital camera technician: Please contact and warm transfer to [facility] if patient is agreeable Needs Language Line: No Medication Claims Data (To verify during call): Med: METFORMIN HYDROCHLORIDE E 500 MG Fill date: 08/19/2023 Day Supply: 90 Quantity: 360 [address] Castro [facility] Clinical Pharmacist 11/13/2023, 5:23 PM documented in [...] filedocumented as of this encounter Care Teams Concreter Relationship Specialty Start Date End Date Taylor Espinoza CRNP [address] [employer] [facility] [address] PCP - General Nurse Practitioner 07/30/23 documented as of this encounter
--- NOTE | 2023-11-19 14:32 | Operative Report ---
Post Operative Report Pre & Post Diagnosis Operation Date: 11/19/23 09:15 Pre-Op Diagnosis: Right Hip Osteoarthritis Post-Op Diagnosis: Right Hip Osteoarthritis I identified the patient and participated in the time-out.: Yes Procedure Operation Date: 11/19/23 09:15 Actual Procedures p Right Total Hip Replacement - Anterior Approach(Right) - Americo Pink MD Surgeon Americo Pink MD Chain Maker Hand None Estimated Blood Loss 100 Findings Consistent with Post-Op Diagnosis Severe degenerative changes with chronically thickened and scarred synovial lining and capsular tissue. severe degenerative changes with chronically thickened and scarred synovial lining and capsular tissue. Specimens Femoral head and bone and cartilage fragments Femoral head and bone and cartilage fragments Complications None none Indications Components used: components used: [employer] cemented hip system: Acetabulum size 48 with 25 mm dome screw and Oreo Oxinium liner. Femur size 0 standard offset with 0 neck length 22 mm Oxinium inner dual mobility head. Femur size 0 standard offset with 0 neck length 22 mm Oxinium inner dual mobility head. [employer] uncemented hip system: Acetabulum size 48 with 25 mm dome screw and Oreo Oxinium liner. Description of Procedure Following satisfactory spinal anesthesia the patient was supine on the operating room table. The right lower extremity was placed in the traction device in the left leg in the well-leg dyre. Positioning was confirmed with fluoroscopy. The leg was para ChloraPrep and draped sterilely. An anterior approach was performed and deepened through a fairly large subcutaneous fat layer. Hemostasis was obtained. The interval between the sartorius and tensor muscles was opened and the circumflex femoral vessels were identified and coagulated. An anterior capsulotomy was performed. The capsule was extremely thickened and chronically inflamed. Fluoroscopy was used to confirm femoral neck resection level which was completed and the severely arthritic femoral head was removed. The acetabular self-retaining retractor was placed. Acetabular preparation was completed with excision of labral and some of the capsular tissue. Reaming was then completed under direct vision and a 48 shell was impacted into a healthy bed in a position of 35 to 40 degrees of abduction and 25 degrees of anteversion confirmed with fluoroscopy. A dome screw was placed followed by the Oreo liner. Local anesthetic was placed and the wound was irrigated. The femur was placed in a position of external rotation extension and adduction. Femoral canal was identified and was prepared up to the size 0. A trial reduction with a standard offset neck and a 0 neck length inner dual mobility head was performed. Fluoroscopy showed very good fit and fill of the proximal canal very good orientation the component and zoroastrianism of leg length and offset at the level of the lesser trochanter. Hip was dislocated. Trial component was removed. Local anesthetic was placed. The wound was irrigated and the final stem head complex of the same size was placed and the hip was reduced. Fluoroscopy showed similar findings. The wound was irrigated with 500 cc of experience irrigation. There was very little bleeding. The tensor fascia was closed with a running suture of 0 STRATAFIX strata fix as was the deeper subcutaneous fat layers in multiple layers. The most superficial layer was closed with 3 O STRATAFIX Strata fix Prineo dressing followed by a negative pressure wound dressing were applied. The patient was returned to his bed in stable condition. I attest to the content of the Intraoperative Record and any orders documented therein. Any exceptions are noted below.
--- NOTE | 2023-11-19 14:40 | Pharmacy Report ---
Pharmacy Glycemic Short Note 2 - Date of Service November 19, 2023 - Glycemic Short BSG Results (Last 24 hours): 11/19/23 11/19/23 07:33 12:20 POC Glucose 137 H 131 H OUTPATIENT ANTIDIABETIC REGIMEN: * metformin ER 1000mg PO BID * HbA1c 7.1% (10/20/23) ASSESSMENT: * Jn is an 83 YOM admitted status post right total hip arthroplasty and a history of T2DM. Pharmacy has been consulted for glycemic management while inpatient. * Preoperative BSG within goal range, no steroids ordered, will hold basal insulin at this time. * Novolog initated at a weight based stress of 1.5 PLAN FOR INPATIENT GLYCEMIC CONTROL: * Hold outpatient oral diabetes medications * Basal insulin * hold * Bolus insulin * NovoLog per scale ACHS or Q6hrs while NPO * Goal Range: Low 120 mg/dL - High 160 mg/dL * Correction Factor: 30 mg/dL/unit * Nutritional / Prandial insulin per carb ratio of 1 unit per 10 grams CHO consumed
[2023-11-19] MEDS: ORTHO JOINT ANESTHETIC ONE (15:01)
[2023-11-19] MEDS: SODIUM CHLORIDE 0.9% 1,000 ML IV SCH (15:05)
[2023-11-19] MEDS: INSULIN ASPART PER UNIT CHARGE SC SCH (15:07)
[2023-11-19] MEDS: TRANEXAMIC ACID 1,000 MG **IV Intra-op IV SCH (16:21)
[2023-11-19] MEDS: traMADol HCL 50 MG TABLET PO PRN (17:06)
[2023-11-19] MEDS: ARTIFICIAL TEARS OP SCH (20:34)
[2023-11-19] MEDS: levETIRAcetam 250 MG TAB PO SCH (20:35)
[2023-11-19] MEDS: SENNA 8.6 MG TAB PO SCH (20:35)
[2023-11-19] MEDS: THIAMINE HCL 100 MG TAB PO SCH (20:36)
[2023-11-19] MEDS: DOCUSATE SODIUM 100 MG CAP PO SCH (20:36)
[2023-11-19] MEDS ORDERED: metFORMIN HCL ER 500 MG TABCR PO SCH (21:00)
[2023-11-20 06:21] LABS: Basophils # (auto) 0.05 K/uL (0.00-0.20); Basophils % (auto) 0.7 %; Eosinophils # (auto) 0.21 K/uL (0.00-0.50); Eosinophils % (auto) 2.9 %; Hematocrit (blood only) 33.1 % (42.0-52.0); Immature Granulocytes # (auto) 0.02 K/uL (0.01-0.20); Immature Granulocytes % (auto) 0.3 %; Lymphocytes # (auto) 2.05 K/uL (1.20-3.40); Lymphocytes % (auto) 28.8 %; Mean Corpuscular Hemoglobin 29.6 pg (25.0-34.0); Mean Corpuscular Hgb Conc 33.2 g/dL (32.0-36.0); Mean Platelet Volume 11.3 fL (9.4-12.4); Monocytes # (auto) 0.41 K/uL (0.11-0.59); Monocytes % (auto) 5.8 %; Neutrophils # (auto) 4.38 K/uL (1.40-6.50); Neutrophils % (auto) 61.5 %; Platelet Count 158 K/uL (130-400); RDW Coefficient of Variation 13.9 % (11.5-14.5); RDW Standard Deviation 44.9 fL (36.4-46.3); Red Blood Count 3.72 M/uL (4.70-6.10); White Blood Count 7.12 K/ul (4.8-10.8)
[2023-11-20 06:44] LABS: BUN Creatinine Ratio 14.4 (10-20); Calcium 8.7 mg/dl (8.6-10.3); Creatinine Clr Calc Pharmacy 52.8 ml/min; Est GFR (African American) 77.7 ml/min
[2023-11-20] MEDS: MULTIVITAMIN TAB PO SCH (08:19)
[2023-11-20] MEDS: amLODIPine BESYLATE 5 MG TAB PO SCH (08:19)
[2023-11-20] MEDS: metFORMIN HCL ER 500 MG TABCR PO SCH (08:19)
[2023-11-20] MEDS: CYANOCOBALAMIN (B-12) 500 MCG TABLET PO SCH (08:20)
[2023-11-20] MEDS: FOLIC ACID 1 MG TAB PO SCH (08:20)
[2023-11-20] MEDS: LOSARTAN POTASSIUM 50 MG TAB PO SCH (08:20)
[2023-11-20] MEDS: EZETIMIBE 10 MG TAB PO SCH (08:20)
[2023-11-20] MEDS: DULoxetine HCL 60 MG CAP PO SCH (08:20)
--- NOTE | 2023-11-20 09:08 | Orthopedic Progress Note ---
Date of Service November 20, 2023 Assessment & Plan (1) Degenerative joint disease of right hip: Plan: patient is stable this morning. He has not been out of bed yet. His previous hip which was done in May and had a protracted recovery and needed a correction facility stay. I doubt that he is going to need that with this today. He will need encouragement and practice with therapy. We will get him up and see how he does today. Hopefully he will tolerate therapy well and be ready for discharge within the next day or so. He will eventually be discharged to home and be followed by [facility]. Admission and Anticipated Discharge Date Admission Date: November 19, 2023 Subjective postoperative day #1 right total hip replacement Patient is seen at the bedside. He reports a comfortable night. He has not been up or ambulatory yet. He offers no complaints or problems this morning. Physical Exam Physical Exam: Patient is examined at the bedside. He is awake alert and oriented x 3. His dressing is clean dry and intact he has modest swelling and bruising but certainly nothing excessive. His hip is located he is neurologically and vascularly intact. He does have some groin pain with active range of motion of the hip Results & Data Vital Signs (Past 12 Hours) Vital Signs Temp Pulse Resp BP Pulse Ox O2 Del Method 11/20/23 07:42 36.5 C 83 18 126/71 94 Room Air 11/20/23 03:27 36.7 C 88 16 118/71 92 Room Air Laboratory Results hemoglobin is 11 Blood sugars have been running in the 130s to 150s
--- NOTE | 2023-11-20 11:37 | Pharmacy Report ---
Pharmacy Glycemic Sign Off Nt - Date of Service November 20, 2023 - Assessment & Plan ASSESSMENT: * Pharmacy was consulted by Dr Pink on 11/19/23 for glycemic control and to write orders per [facility] inpatient glycemic control protocol. * Major changes made by pharmacy to antidiabetic regimen include: * Addition of Novolog SS coverage (initially with carbohydrate coverage, removed when metformin restarted) * Restarting metformin * Patient has been required units of insulin per day for adequate glycemic control * BSGs ranging 135-159 mg/dl * Regimen has only required minor adjustments over the past 48hrs to achieve this level of control * Do not anticipate further changes in patient status that would quickly deteriorate glycemic control (i.e. patient to be NPO for upcoming procedure, steroids tapering, starting tube feedings, etc). * Please see recommendations for outpatient antidiabetic regimen below. PLAN FOR INPATIENT GLYCEMIC CONTROL: No changes needed to current regimen. * Continue metformin ER 1000mg BID * Continue NovoLog per scale ACHS/Q6hrs while NPO * Goal range = 120-150 mg/dl * CF = 30 mg/dl/unit * Pharmacy is signing off of glycemic consult and will no longer be making adjustments to inpatient regimen. Please feel free to re-consult if needed. Thank you.
[2023-11-20] MEDS: ACETAMINOPHEN 500 MG TAB PO SCH (13:11)
[2023-11-21] MEDS: levETIRAcetam 250 MG TAB PO SCH (07:52)
--- NOTE | 2023-11-21 08:41 | Orthopedic Progress Note ---
Date of Service November 21, 2023 Assessment & Plan (1) Degenerative joint disease of right hip: Plan: Patient is doing well. He physical therapy has cleared him for discharge to home. He will be discharged to home today and followed by [facility]. He will follow-up in the office in 2 weeks time. We did review his instructions and prescriptions today. Admission and Anticipated Discharge Date Admission Date: November 19, 2023 Subjective Postoperative day #2 right total hip replacement Patient is seen at the bedside. He is alert and oriented x 3. He has been ambulatory Has been cleared by physical therapy for discharge to home. He states that he feels comfortable going home. His pain is controlled his blood sugars have been controlled and he has been cleared by physical therapy. Physical Exam Physical Exam: Patient is examined at the bedside. His hip dressing is clean dry and intact. His thigh and calf are soft and nontender he has mild bruising. He is neurologically and vascularly intact and his hip is located. Results & Data Vital Signs (Past 12 Hours) Vital Signs Temp Pulse Resp BP Pulse Ox O2 Del Method 11/21/23 08:04 Room Air 11/21/23 07:40 36.8 C 81 16 119/70 92 Room Air
== END 2023-11-21 11:15 | disposition home health service (06) ==
LOC: ASU 06:29 → 3E 06:29